=== PATIENT | female | born 1975 | race Caucasian/White ===

== ENCOUNTER 2021-04-18 08:22 | Inpatient (IN) | payer MEDICAID, OTHER, SELFPAY ==
--- NOTE | ~2021-04-18 | US_ITS ---
EXAMINATION: US ABDOMEN LIMITED CLINICAL INFORMATION: Right upper quadrant pain. Rule out acute cholecystitis.. COMPARISON: None TECHNIQUE: Real-time imaging of the right upper quadrant abdominal viscera. FINDINGS: GALLBLADDER: There are 2 echogenic shadowing mobile gallstones measuring 1.2 x 1.4 cm in the fundus and 1.2 x 1.2 cm in the neck. Gallbladder wall thickness measures 0.37 cm. COMMON BILE DUCT: Normal in caliber measuring 0.4 317. cm in diameter. No echogenic stones or debris seen in the CBD. US/US abdomen limited IMPRESSION: Mobile gallstones with mild wall thickening. Common bile duct appears normal caliber.
--- NOTE | ~2021-04-18 | MR_ITS ---
EXAMINATION: MR ABDOMEN WITHOUT CONTRAST CLINICAL INFORMATION: Rule out common bile duct stone COMPARISON: Previous CT of the abdomen and limited right upper quadrant ultrasound from yesterday TECHNIQUE: MR abdomen is performed without gadolinium contrast. MRCP sequences were also performed. FINDINGS: LUNG BASES: The visualized lung bases are unremarkable. LIVER, GALLBLADDER, AND BILIARY TREE: The liver is normal in size, smooth in contour, and normal in signal. No focal hepatic lesion or biliary ductal dilatation is present. The gallbladder is enlarged. There is gallbladder wall thickening and edema. There are 2 gallstones, one in the neck of the gallbladder. The common bile duct measures 7 mm. There is a small 3 mm stone seen in the common bile duct, for example image 1 series 9, image 29 series 11 and image 13 series 4. PANCREAS: Unremarkable. The main pancreatic duct is normal. SPLEEN: Unremarkable. ADRENAL GLANDS: Unremarkable. KIDNEYS AND URETERS: The kidneys are normal in size and shape. No hydronephrosis. No perinephric stranding. GASTROINTESTINAL TRACT: No bowel obstruction. No ascites or fluid collection. ABDOMINAL WALL: No significant hernia is appreciated. LYMPH NODES: No lymphadenopathy. VASCULAR: Unremarkable. OSSEOUS STRUCTURES: Marrow signal normal. MR/MR MRCP IMPRESSION: Enlarged gallbladder, gallstones and gallbladder wall thickening and edema suggestive of acute cholecystitis. 3 mm common bile duct stone. Normal caliber intra and extrahepatic bile ducts.
--- NOTE | ~2021-04-18 | FL_ITS ---
EXAMINATION: XR FLUOROSCOPY WITH IMAGES CLINICAL INFORMATION: Gallstones and common bile left stone COMPARISON: Previous MRCP from yesterday TECHNIQUE: Fluoroscopy performed by Dr. Edgardo Santo. Fluoroscopy time: 3.2 minutes DAP: 19 mGycm2 Images: 5 FINDINGS: Images demonstrate wire in the extrahepatic bile duct. There is no intra or extrahepatic biliary duct dilatation. There is a small round filling defect in the distal common bile duct questionable for common bile duct stone. There is passage of contrast into the duodenum. FL/FL guidance in OR IMPRESSION: Fluoroscopy guidance for ERCP.
--- NOTE | ~2021-04-18 | CT_ITS ---
EXAMINATION: CT ABDOMEN AND PELVIS WITHOUT CONTRAST CLINICAL INFORMATION: Right-sided flank pain COMPARISON: None TECHNIQUE: Multidetector volumetric imaging was performed from the superior aspect of the liver through the pubic symphysis. Sagittal and coronal reformatted images were obtained on the technologist's workstation. This CT examination was performed using dose optimization techniques as appropriate, variously including the following: *Automated exposure control *Adjustment of mA and/or kV according to patient size (this includes techniques or standardized protocols for targeted exams where dose is matched to indication/reason for exam; i.e. extremities or head) *Use of iterative reconstruction technique DLP: 534 mGy-cm FINDINGS: Exam is limited due to motion artifact. LUNG BASES: The visualized lung bases are unremarkable. LIVER, GALLBLADDER, AND BILIARY TREE: The liver is normal in size, shape, and attenuation. No focal hepatic lesion or biliary ductal dilatation is present. The gallbladder is enlarged measuring 4.8 x 5.7 x 11.5 cm transverse AP and longitudinal dimension. There are gallstones in the gallbladder, including stone in the neck of the gallbladder. The gallbladder wall appears thickened. PANCREAS: Unremarkable. SPLEEN: Unremarkable. ADRENAL GLANDS: Unremarkable. KIDNEYS AND URETERS: The kidneys are normal in size, shape, and attenuation. No hydronephrosis, hydroureter, or calculi seen. No perinephric stranding. BLADDER: Unremarkable. GASTROINTESTINAL TRACT: There is a duodenal diverticulum adjacent to the head of the pancreas. The small and large bowel are otherwise unremarkable. The appendix is unremarkable. ABDOMINAL WALL: No significant hernia is appreciated. LYMPH NODES: Normal. VASCULAR: Unremarkable. PELVIC VISCERA: Unremarkable. OSSEOUS STRUCTURES: Unremarkable. CT/CT abdomen pelvis wo con IMPRESSION: Gallstones including stone in the neck of the gallbladder. Enlarged gallbladder and gallbladder wall thickening. Appearance is questionable for acute cholecystitis. Fleischner guidelines were followed.
[2021-04-18 08:30] VITALS: BP 116/87; PULSE 102; RESP 20; TEMP 36.6; O2SAT 98; BMI 28.3
--- NOTE | 2021-04-18 08:55 | ECG_ITS ---
Test Reason : ABDOMINAL PAIN Blood Pressure : / mmHG Vent. Rate : 093 BPM Atrial Rate : 093 BPM P-R Int : 180 ms QRS Dur : 082 ms QT Int : 346 ms P-R-T Axes : 051 039 011 degrees QTc Int : 430 ms Normal sinus rhythm Right atrial enlargement Borderline ECG No previous ECGs available Referred By: Yael Porras Electronically Signed By:
--- NOTE | 2021-04-18 09:06 | ED_ITS ---
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 Initially the patient was having intermittent episodes but now they seem more frequent and more severe pain. There is no associated nausea, vomiting, fever, urinary symptoms. No diarrhea or constipation. No surgical history Related Data Home Medications Medication Instructions Recorded Confirmed No Known Home Meds 04/18/21 04/18/21 Allergies Allergy/AdvReac Type Severity Reaction Status Date / Time No Known Allergies Allergy Verified 04/18/21 08:54 Review of Systems Review of Systems Yes all other systems are reviewed and are negative Constitutional: Reports no additional constitutional complaints, Denies body ache(s), Denies chills, Denies fever(s), Denies headache(s) and Denies weakness Eyes: Reports no additional eye complaints and Denies change in vision Reports system reviewed and no additional complaints, except as documented, Denies dizziness, Denies headache(s), Denies nasal congestion, Denies nasal discharge and Denies neck pain Cardiovascular: Reports no additional cardiovascular complaints, Denies chest pain, Denies leg edema and Denies dyspnea Respiratory: Reports no additional respiratory complaints, Denies cough and Denies dyspnea Gastrointestinal: Reports no additional gastrointestinal complaints, Reports abdominal pain, Denies diarrhea, Denies nausea and Denies vomiting Genitourinary: Reports no additional female genitourinary complaints and Denies urinary incontinence Musculoskeletal: Reports no additional musculoskeletal complaints, Reports back pain, Denies arthralgias, Denies joint swelling, Denies neck pain, Denies numbness and Denies tingling Skin/Breast: Reports system reviewed and no additional complaints, except as docu and Denies rash Reports system reviewed and no additional complaints, except as documented, Denies Abnormal speech present, Denies dizziness, Denies headache(s), Denies numbness, Denies tingling and Denies weakness Physical Exam Verdana 4l Vital Signs: Verdana 4d Verdana 4d Vital Signs: Verdana 4d Verdana 4Bd Last Vital Signs Verdana 4d Field Evidence Technician New 4d Field Evidence Technician New 4d Temp 97.8 F 04/18/21 08:30 Field Evidence Technician New 4d Pulse 102 H 04/18/21 08:30 Field Evidence Technician New 4d Resp 20 04/18/21 08:30 BP 116/87 04/18/21 08:30 Pulse Ox 98 04/18/21 08:30 BMI result Body Mass Index 28.3 Const: General: cooperative, healthy appearing, comfortable and no acute distress Orientation/consciousness: patient oriented x3 Limitations: no limitations HENMT: Head: Yes normal to inspection Ears: hearing grossly normal bilaterally General nose exam: Normal external nose present Face and sinus: Yes normal facial exam Mouth: Normal oral and palatal mucosa present Throat: Yes posterior oropharynx normal Eyes: General: appearance normal, both eyes and all related structures Pupils: Equal, round and reactive pupils present Neck: Neck: Yes normal visual inspection Chest: Chest palpation & inspection: normal inspection of the chest Resp: Effort & Inspection: normal respiratory effort Auscultation: clear to auscultation bilaterally Cardio: Rate: regular rate Rhythm: regular rhythm Peripheral pulses: Peripheral pulses 2+ throughout GI: Inspection: Yes normal to inspection Palpation (GI): Soft to palpation and Tenderness to palpation present (GI) (Generalized but more focal in RUQ with guarding ) Auscultation: normal bowel sounds : General: Yes CVA tenderness (mild right ) Back/Spine/Pelvis: Back: CVA tenderness (mild right ) Thoracic/Lumbar Spine: thoracic and lumbar spine normal to inspection Skin: General skin exam: no rashes or lesions noted Neuro: General: patient oriented x3, no focal motor deficits and normal sensation to monofilament Cranial nerves: Yes Equal, round and reactive pupils present Cognition (Neuro): normal cognition Speech: No Abnormal speech present Gait exam (Neuro): Normal gait present Motor exam (neuro): 5/5 motor strength present throughout Extrem: General: Yes normal to inspection Course Course Course Narrative: 45-year-old female here with reports of right-sided rib patient over the last 2 days that is getting more frequent and more severe with time. No associated symptoms. On exam the patient has generalized abdominal pain but more focal tenderness in the right upper quadrant with also some mild right CVA tenderness. Will check labs, UA, CT, COVID screen. 1000-+trich on urine. Will send CT NG 1100-CT shows IMPRESSION: Gallstones including stone in the neck of the gallbladder. Enlarged gallbladder and gallbladder wall thickening. Appearance is questionable for acute cholecystitis. 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 Her pain is improving but not resolved. Will check ultrasound. Patient has a leukocytosis. At this time infection is suspected. Blood cultures and lactic acid ordered. Antibiotics ordered UA is concerning for UTI. She also is positive for Trichomonas. She tells me she has a female partner but they are not currently sexually active and have not been for 2 years. She is not concern for STD exposure. Will treat with p.o. Flagyl x1. 1145- Abdominal US GALLBLADDER: There are 2 echogenic shadowing mobile gallstones measuring 1.2 x 1.4 cm in the fundus and 1.2 x 1.2 cm in the neck. Gallbladder wall thickness measures 0.37 cm. COMMON BILE DUCT: Normal in caliber measuring 0.4 317. cm in diameter. No echogenic stones or debris seen in the CBD. -Call out to surgery to discuss 1215-Spoke to Dr Breaux who is at the bedside seeing the patient and will a dmit to his service. MDM - Abdominal Pain MDM Narrative Medical decision making narrative: Renal colic, pyelonephritis, cholecystitis Medical Records Attestation: I reviewed the patient's medical records. Lab Data Attestation: I reviewed the patient's lab results. Result diagrams: 04/18/21 09:16 04/18/21 09:16 Labs: Lab Results 04/18/21 04/18/21 04/18/21 Range/Units 09:00 09:00 09:16 WBC 21.5 H (4.8-10.8) X10*3/uL RBC 5.15 (4.20-5.50) X10*6/uL Hgb 14.8 (12.0-16.0) g/dl Hct 44.6 (37.0-47.0) % MCV 86.6 (80.0-98.0) fL MCH 28.7 (27.0-33.0) pg MCHC 33.2 (31.0-35.0) g/dl RDW 12.1 (11.0-16.0) % Plt Count 375 (160-400) X10*3/uL MPV 8.6 L (9.4-12.3) fL Immature Gran % (Auto) 0.4 (0.0-0.4) % Neut % (Auto) 80.7 H (45-73) % Lymph % (Auto) 9.2 L (20-40) % [place] % (Auto) 9.6 (2-11) % Eos % (Auto) 0.0 (0-4) % Baso % (Auto) 0.1 (0-2) % Lymph # (Auto) 2.0 (1.2-4.9) X10*3/uL [place] # (Auto) 2.1 H (0.1-1.2) X10*3/uL Eos # (Auto) 0.0 (0.0-0.4) X10*3/uL Baso # (Auto) 0.0 (0.0-0.2) X10*3/uL Abs Immat Gran (auto) 0.09 H (0.00-0.03) X10*3/uL Absolute Neuts (auto) 17.3 H (2.0-8.3) x10*3/uL Absolute Nucleated RBC 0.000 (0.0-0.012) X10*3/uL Nucleated RBC % (auto) 0.0 (0.0-0.2) /100WBC Smear Tech's Comments VERIFIED Sodium (135-145) mmol/L Potassium (3.3-5.1) mmol/L Chloride (96-108) mmol/L Carbon Dioxide (22-29) mmol/L Anion Gap (12-20) BUN (9-16) mg/dL Creatinine (0.5-1.4) mg/dL Estim Creat Clear Calc Estimated GFR Random Glucose (60-115) mg/dL Lactic Acid (0.5-2.0) mmol/L Calcium (8.4-10.2) mg/dL Total Bilirubin (0.0-1.0) mg/dL Direct Bilirubin (0.0-0.5) mg/dL AST (5-31) U/L ALT (0-31) U/L Alkaline Phosphatase (39-117) U/L Total Protein (6.5-8.0) g/dL Albumin (3.5-5.0) g/dL Lipase (8-78) U/L Urine Color YELLOW Urine Appearance HAZY Urine pH 5.5 (5.0-8.0) Ur Specific [place] >= 1.030 H (1.005-1.025) Urine Protein TRACE (NEG-TRACE) MG/DL Urine Glucose (UA) NEG (NEG) MG/DL Urine Ketones NEG (NEG) MG/DL Urine Blood 3+ H (NEG) Urine Nitrite NEG (NEG) Ur Leukocyte Esterase 1+ H (NEG) Urine RBC 15-29 H (0) /HPF Urine WBC 10-14 H (0-4) /HPF Ur Squamous Epith 3+ /LPF Cells Urine Bacteria TRACE /LPF Urine Mucus 2+ /LPF Urine Trichomonas NOTED Urine Test NEGATIVE (NEGATIVE) Chlam trachomat DNA (Not Detect.) PCR COVID-19 ([facility]) (Negative) COVID-19 Clin Com N.gonorrhoeae DNA (Not Detect.) (PCR) 04/18/21 04/18/21 04/18/21 Range/Units 09:16 09:17 10:38 WBC (4.8-10.8) X10*3/uL RBC (4.20-5.50) X10*6/uL Hgb (12.0-16.0) g/dl Hct (37.0-47.0) % MCV (80.0-98.0) fL MCH (27.0-33.0) pg MCHC (31.0-35.0) g/dl RDW (11.0-16.0) % Plt Count (160-400) X10*3/uL MPV (9.4-12.3) fL Immature Gran % (0.0-0.4) % (Auto) Neut % (Auto) (45-73) % Lymph % (Auto) (20-40) % [place] % (Auto) (2-11) % Eos % (Auto) (0-4) % Baso % (Auto) (0-2) % Lymph # (Auto) (1.2-4.9) X10*3/uL [place] # (Auto) (0.1-1.2) X10*3/uL Eos # (Auto) (0.0-0.4) X10*3/uL Baso # (Auto) (0.0-0.2) X10*3/uL Abs Immat Gran (auto) (0.00-0.03) X10*3/uL Absolute Neuts (auto) (2.0-8.3) x10*3/uL Absolute Nucleated (0.0-0.012) RBC X10*3/uL Nucleated RBC % (0.0-0.2) /100WBC (auto) Smear Tech's Comments Sodium 135 (135-145) mmol/L Potassium 4.3 (3.3-5.1) mmol/L Chloride 100 (96-108) mmol/L Carbon Dioxide 26 (22-29) mmol/L Anion Gap 13 (12-20) BUN 10 (9-16) mg/dL Creatinine 0.71 (0.5-1.4) mg/dL Estim Creat Clear 97.0 Calc Estimated GFR > 60 Random Glucose 134 H (60-115) mg/dL Lactic Acid (0.5-2.0) mmol/L Calcium 10.6 H (8.4-10.2) mg/dL Total Bilirubin 0.8 (0.0-1.0) mg/dL Direct Bilirubin 0.3 (0.0-0.5) mg/dL AST 13 (5-31) U/L ALT 16 (0-31) U/L Alkaline Phosphatase 73 (39-117) U/L Total Protein 8.5 H (6.5-8.0) g/dL Albumin 4.7 (3.5-5.0) g/dL Lipase < 4 L (8-78) U/L Urine Color Urine Appearance Urine pH (5.0-8.0) Ur Specific [place] (1.005-1.025) Urine Protein (NEG-TRACE) MG/DL Urine Glucose (UA) (NEG) MG/DL Urine Ketones (NEG) MG/DL Urine Blood (NEG) Urine Nitrite (NEG) Ur Leukocyte Esterase (NEG) Urine RBC (0) /HPF Urine WBC (0-4) /HPF Ur Squamous Epith /LPF Cells Urine Bacteria /LPF Urine Mucus /LPF Urine Trichomonas Urine Test (NEGATIVE) Chlam trachomat DNA NOT DETECTED (Not Detect.) PCR COVID-19 ([facility]) Negative (Negative) COVID-19 Clin Com See Note N.gonorrhoeae DNA NOT DETECTED (Not Detect.) (PCR) 04/18/21 Range/Units 11:26 WBC (4.8-10.8) X10*3/uL RBC (4.20-5.50) X10*6/uL Hgb (12.0-16.0) g/dl Hct (37.0-47.0) % MCV (80.0-98.0) fL MCH (27.0-33.0) pg MCHC (31.0-35.0) g/dl RDW (11.0-16.0) % Plt Count (160-400) X10*3/uL MPV (9.4-12.3) fL Immature Gran % (Auto) (0.0-0.4) % Neut % (Auto) (45-73) % Lymph % (Auto) (20-40) % [place] % (Auto) (2-11) % Eos % (Auto) (0-4) % Baso % (Auto) (0-2) % Lymph # (Auto) (1.2-4.9) X10*3/uL [place] # (Auto) (0.1-1.2) X10*3/uL Eos # (Auto) (0.0-0.4) X10*3/uL Baso # (Auto) (0.0-0.2) X10*3/uL Abs Immat Gran (auto) (0.00-0.03) X10*3/uL Absolute Neuts (auto) (2.0-8.3) x10*3/uL Absolute Nucleated RBC (0.0-0.012) X10*3/uL Nucleated RBC % (auto) (0.0-0.2) /100WBC Smear Tech's Comments Sodium (135-145) mmol/L Potassium (3.3-5.1) mmol/L Chloride (96-108) mmol/L Carbon Dioxide (22-29) mmol/L Anion Gap (12-20) BUN (9-16) mg/dL Creatinine (0.5-1.4) mg/dL Estim Creat Clear Calc Estimated GFR Random Glucose (60-115) mg/dL Lactic Acid 1.2 (0.5-2.0) mmol/L Calcium (8.4-10.2) mg/dL Total Bilirubin (0.0-1.0) mg/dL Direct Bilirubin (0.0-0.5) mg/dL AST (5-31) U/L ALT (0-31) U/L Alkaline Phosphatase (39-117) U/L Total Protein (6.5-8.0) g/dL Albumin (3.5-5.0) g/dL Lipase (8-78) U/L Urine Color Urine Appearance Urine pH (5.0-8.0) Ur Specific [place] (1.005-1.025) Urine Protein (NEG-TRACE) MG/DL Urine Glucose (UA) (NEG) MG/DL Urine Ketones (NEG) MG/DL Urine Blood (NEG) Urine Nitrite (NEG) Ur Leukocyte Esterase (NEG) Urine RBC (0) /HPF Urine WBC (0-4) /HPF Ur Squamous Epith Cells /LPF Urine Bacteria /LPF Urine Mucus /LPF Urine Trichomonas Urine Test (NEGATIVE) Chlam trachomat DNA PCR (Not Detect.) COVID-19 ([facility]) (Negative) COVID-19 Clin Com N.gonorrhoeae DNA (PCR) (Not Detect.) Imaging Data CT scan - abdomen: Attestation: I personally reviewed and interpreted this imaging study as follows: Radiologist's impression: IMPRESSION: Gallstones including stone in the neck of the gallbladder. Enlarged gallbladder and gallbladder wall thickening. Appearance is questionable for acute cholecystitis. US - abdomen: Attestation: I personally reviewed and interpreted this imaging study as follows: Radiologist's impression: GALLBLADDER: There are 2 echogenic shadowing mobile gallstones measuring 1.2 x 1.4 cm in the fundus and 1.2 x 1.2 cm in the neck. Gallbladder wall thickness measures 0.37 cm. COMMON BILE DUCT: Normal in caliber measuring 0.4 317. cm in diameter. No echogenic stones or debris seen in the CBD. US/US abdomen limited IMPRESSION: Mobile gallstones with mild wall thickening. ? Common bile duct appears normal caliber. ECG Data Attestation: I personally reviewed and interpreted this ECG as follows: ECG interpretation date: 04/18/21 ECG interpretation time: 09:21 Interpretation: NSR with rate 84, normal pr, normal qrs, normal qt Discharge Plan Discharge Clinical Impression: Acute cholecystitis Patient Disposition: Admitted As Inpatient [facility] Past Medical History Attestation statement: The following information was validated with the patient. Source: old records reviewed and nursing notes reviewed Medical History GERD (gastroesophageal reflux disease) Social History Social History Advance Directives: No Advance Directives Information Provided: Yes Patient : No
[2021-04-18 09:23] LABS: Basophils Percent Auto 0.1 % (0-2); Hematocrit 44.6 % (37.0-47.0); Hemoglobin 14.8 g/dl (12.0-16.0); Imm Gran Abs Auto 0.09 X10*3/uL (0.00-0.03); Imm Gran Pct Auto 0.4 % (0.0-0.4); Lymphocytes Percent Auto 9.2 % (20-40); MANUAL DIFF FLAG SCAN; Mean Corpuscular HGB Conc 33.2 g/dl (31.0-35.0); Mean Corpuscular Hemoglobin 28.7 pg (27.0-33.0); Mean Corpuscular Volume 86.6 fL (80.0-98.0); Mean Platelet Volume 8.6 fL (9.4-12.3); Monocytes Absolute Auto 2.1 X10*3/uL (0.1-1.2); Monocytes Percent Auto 9.6 % (2-11); Neutrophils Absolute Auto 17.3 x10*3/uL (2.0-8.3); Neutrophils Percent Auto 80.7 % (45-73); Platelet Count 375 X10*3/uL (160-400); Red Blood Count 5.15 X10*6/uL (4.20-5.50); Red Cell Distribution Width 12.1 % (11.0-16.0); SCAN SMEAR FLAG 1; White Blood Count 21.5 X10*3/uL (4.8-10.8)
[2021-04-18 09:26] LABS: UPreg QC Valid YES; Urine Pregnancy NEGATIVE (NEGATIVE)
[2021-04-18 09:28] LABS: Appearance Urine HAZY; Color Urine YELLOW; Glucose Urine UA NEG (NEG); Leukocyte Esterase Urine 1+ (NEG); Nitrite Urine NEG (NEG); PH 5.5 (5.0-8.0); Specific Gravity - Urine >= 1.030 (1.005-1.025); UACC Culture Trigger YES; Urine Blood 3+ (NEG); Urine Ketones NEG (NEG); Urine Protein TRACE MG/DL (NEG-TRACE)
[2021-04-18 09:44] LABS: Alanine Aminotransferase 16 U/L (0-31); Albumin Level 4.7 g/dL (3.5-5.0); Alkaline Phosphatase 73 U/L (39-117); Anion Gap 13 (12-20); Aspartate Amino Transferase 13 U/L (5-31); Bilirubin Direct 0.3 mg/dL (0.0-0.5); Bilirubin Total 0.8 mg/dL (0.0-1.0); Blood Urea Nitrogen 10 mg/dL (9-16); Calcium 10.6 mg/dL (8.4-10.2); Carbon Dioxide 26 mmol/L (22-29); Chloride 100 mmol/L (96-108); Estimated Glomerular Filt Rate > 60; Glucose Random 134 mg/dL (60-115); Lipase < 4 U/L (8-78); Potassium 4.3 mmol/L (3.3-5.1); Sodium 135 mmol/L (135-145); Total Protein 8.5 g/dL (6.5-8.0)
[2021-04-18 09:45] LABS: COVID-19 Test Negative (Negative)
[2021-04-18 09:45] LABS: Bacteria Urine TRACE /LPF; Mucus Urine 2+ /LPF; Squamous Epithelial Cell Urine 3+ /LPF
[2021-04-18 09:46] LABS: Trichomonas Urine NOTED
[2021-04-18] MEDS: Ketorolac Tromethamine 30 MG/ML VIAL IVPUSH (10:12)
[2021-04-18] MEDS: 0.9 % Sodium Chloride 1,000 ML 999 ML IV (10:13)
[2021-04-18 10:16] LABS: SLIDE REVIEW VERIFIED
[2021-04-18 11:49] LABS: Lactic Acid 1.2 mmol/L (0.5-2.0)
[2021-04-18] MEDS: Ondansetron ODT 4 MG TAB.RAPDIS TRANSLINGU (11:51)
[2021-04-18] MEDS: metroNIDAZOLE 500 MG TABLET 2000 MG PO (11:51)
[2021-04-18] MEDS: cefTRIAXone sodium 1 GM in 0.9 % Sodium Chloride 50 ML IV (11:51)
--- NOTE | 2021-04-18 12:00 | PHA.MEDREC ---
Pharmacy Consult ? Medication Reconciliation Pharmacy has completed the medication reconciliation. Patient only speak [place]. Reports no medications. María Parikh, PharmD
[2021-04-18 12:26] LABS: CT PCR NOT DETECTED (Not Detect.); NG PCR NOT DETECTED (Not Detect.)
--- NOTE | 2021-04-18 12:53 | P.HPGS_ITS ---
History of Present Illness History of Present Illness Date of Service: 04/19/21 Chief complaint: acute cholecystitis Narrative: Mimi Ann Sa is a 45 year old female who came to the emergency room this morning because of right upper quadrant pain and epigastric pain. She says this has been going on for about 3 days. She does not recall any aggravating factor. She denies any fever or chills. She says that she did not have any appetite yesterday because of her pain. She denies any similar episodes of pain in the past. She says she is in good health otherwise and denies any medications. Review of Systems Verdana 4l Constitutional: Verdana 4d Constitutional: Verdana 4d Verdana 4d Denies chills and Denies fever(s) Verdana 4l Cardiovascular: Verdana 4d Cardiovascular: Verdana 4d Verdana 4d Denies chest pain, Denies dyspnea and Denies dyspnea on exertion Verdana 4l Respiratory: Verdana 4d Verdana 4d Respiratory: Verdana 4d Denies cough, Denies dyspnea and Denies dyspnea on exertion Verdana 4l Gastrointestinal: Verdana 4d Gastrointestinal: Verdana 4d Verdana 4d Denies hematochezia and Denies change in bowel habits Verdana 4l Genitourinary: Verdana 4d Verdana 4d Genitourinary: Verdana 4d Denies hematuria Verdana 4l Musculoskeletal: Verdana 4d Musculoskeletal: Verdana 4d Verdana 4d Denies back pain and Denies limited range of motion Verdana 4l Neurologic: Verdana 4d Denies focal weakness and Denies convulsions Verdana 4l Psychiatric: Verdana 4d Verdana 4d Psychiatric: Verdana 4d Denies depression and Denies mood swings PMFSH Past Medical History Medical History GERD (gastroesophageal reflux disease) Social History Social History Household Members: Family Housing: House Do you presently have visiting nurse or other home services: No Patient Tobacco Use Status: Never used Tobacco Use of substances other than those prescribed or required for medical reasons: No Have you been hit, kicked, punched, or otherwise hurt by someone within the past year? If so, by whom?: No Do you feel safe in your current relationship?: No Current Relationship Is there a partner from a previous relationship who is making you feel unsafe now?: No Are you made to feel afraid or neglected: No Advance Directives: No Advance Directives Information Provided: Yes Do you have thoughts of harming others: None Do you have a plan to hurt others: No Plan Recently lost weight without trying: No Nutrition Risks: No Nutritional Risk Patient : No service: No Current occupational status: unemployed Meds Allergies Allergy/AdvReac Type Severity Reaction Status Date / Time No Known Allergies Allergy Verified 04/18/21 08:54 Active Medications: Current Medications Pharmacy Consult (Consult Rx Perform Med Rec) 1 each MISCELLANE ONCE PRN PRN Reason: Consult order Home Medications Medication Instructions Recorded Confirmed Last Taken Type No Known Home Meds 04/18/21 04/18/21 Unknown History Physical Exam Verdana 4l Vital Signs: Verdana 4d Verdana 4d Vital Signs: Verdana 4d Verdana 4Bd Last Vital Signs Verdana 4d Calculator Operator New 4d Calculator Operator New 4d Temp 97.8 F 04/18/21 08:30 Calculator Operator New 4d Pulse 102 H 04/18/21 08:30 Calculator Operator New 4d Resp 20 04/18/21 08:30 BP 116/87 04/18/21 08:30 Pulse Ox 98 04/18/21 08:30 BMI result Body Mass Index 28.3 Const: General: comfortable and no acute distress Orientation/consciousness: patient oriented x3 Neck: Neck: Yes no lymphadenopathy Resp: Auscultation: clear to auscultation bilaterally Cardio: Rhythm: regular rhythm GI: Other: Tender on the right upper quadrant, no guarding or rebound Palpation (GI): Soft to palpation, Tenderness to palpation present (GI) and no guarding Neuro: General: patient oriented x3 Results Results Labs: Short CBC 04/18/21 Range/Units 09:16 WBC 21.5 H (4.8-10.8) X10*3/uL Hgb 14.8 (12.0-16.0) g/dl Hct 44.6 (37.0-47.0) % Plt Count 375 (160-400) X10*3/uL BMP 04/18/21 09:16 Sodium 135 Potassium 4.3 Chloride 100 Carbon Dioxide 26 BUN 10 Creatinine 0.71 Calcium 10.6 H Liver Function 04/18/21 Range/Units 09:16 Total Bilirubin 0.8 (0.0-1.0) mg/dL Direct Bilirubin 0.3 (0.0-0.5) mg/dL AST 13 (5-31) U/L ALT 16 (0-31) U/L Alkaline Phosphatase 73 (39-117) U/L Albumin 4.7 (3.5-5.0) g/dL Urine 04/18/21 04/18/21 Range/Units 09:00 09:00 Urine Color YELLOW Urine Appearance HAZY Urine pH 5.5 (5.0-8.0) Ur Specific [place] >= 1.030 H (1.005-1.025) Urine Protein TRACE (NEG-TRACE) MG/DL Urine Glucose (UA) NEG (NEG) MG/DL Urine Test NEGATIVE (NEGATIVE) Abdomen CT scan report/results: report reviewed and image reviewed CT scan - pelvis: report reviewed and image reviewed Abdominal ultrasound report/results: report reviewed and image reviewed Assessment and Plan (1) Acute cholecystitis: Status: Acute [age] year old female with right upper quadrant pain and tenderness, with ultrasound and CAT scan findings suggestive of acute cholecystitis with gallstones. High explained to her that she will need to be admitted for IV antibiotics. I told her that we can proceed with laparoscopic cholecystectomy with possible open cholecystectomy as surgical treatment. I discussed with her the technique of this procedure. I reviewed the risks including but not limited to bleeding, infections, injury to other organs including bowel, liver and bile duct, retained stones, bile leak, as well as the benefits and alternatives. She understands and wished to proceed. We will schedule her for this cholecystectomy tomorrow. Stone Lathe Operator services with [employer] were used for the above. The interpeter ID no. was [id number]. Quality Stroke Does the patient have a stroke diagnosis?: No VTE Prior VTE?: No VTE Risk Level:: Medical - moderate - high VTE Device Contraindication: N/A - Device Ordered VTE Drug Contraindication: N/A - Med Ordered Procedures Date of Service Date of Service: 04/18/21
[2021-04-18 14:04] VITALS: BP 97/66; PULSE 94; RESP 16; TEMP 36.6; O2SAT 96
[2021-04-18] MEDS: Piperacillin Sodium/Tazobactam 3.375 GM in 0.9 % Sodium Chloride 50 ML IV ×2 (15:06→21:27)
[2021-04-18] MEDS: Heparin Sodium,Porcine 5,000 UNIT/ML VIAL 5000 UNIT SUBCUT (15:07)
[2021-04-18 17:55] VITALS: BP 119/76; PULSE 115; RESP 17; TEMP 36.6; O2SAT 97
[2021-04-18] MEDS: oxyCODONE HCl Immed Release 5 MG TABLET 10 MG PO (18:07)
[2021-04-18] MEDS: 0.9 % Sodium Chloride Flush 3 ML SYRINGE IVFLUSH (18:07)
[2021-04-18 19:29] VITALS: BP 135/82; PULSE 96; RESP 17; TEMP 36.4; O2SAT 97
[2021-04-18] MEDS: Morphine Sulfate 4 MG/ML CARTRIDGE 3 MG IVPUSH (21:29)
[2021-04-18 23:56] VITALS: BP 97/68; PULSE 90; RESP 15; TEMP 37; O2SAT 95
[2021-04-19] MEDS: 0.9 % Sodium Chloride Flush 3 ML SYRINGE IVFLUSH ×3 (00:16→22:16)
[2021-04-19] MEDS: Heparin Sodium,Porcine 5,000 UNIT/ML VIAL 5000 UNIT SUBCUT (00:16)
[2021-04-19] MEDS: Piperacillin Sodium/Tazobactam 3.375 GM in 0.9 % Sodium Chloride 50 ML IV ×4 (03:07→22:16)
[2021-04-19] MEDS: Morphine Sulfate 4 MG/ML CARTRIDGE 3 MG IVPUSH ×2 (03:09→09:07)
[2021-04-19 04:00] VITALS: BP 93/59; PULSE 92; RESP 14; TEMP 37.2; O2SAT 95
[2021-04-19 06:12] LABS: Basophils Percent Auto 0.2 % (0-2); Eosinophils Percent Auto 0.2 % (0-4); Hematocrit 37.3 % (37.0-47.0); Hemoglobin 12.2 g/dl (12.0-16.0); Imm Gran Abs Auto 0.05 X10*3/uL (0.00-0.03); Imm Gran Pct Auto 0.3 % (0.0-0.4); Lymphocytes Absolute Auto 2.7 X10*3/uL (1.2-4.9); Lymphocytes Percent Auto 19.1 % (20-40); MANUAL DIFF FLAG SCAN; Mean Corpuscular HGB Conc 32.7 g/dl (31.0-35.0); Mean Corpuscular Hemoglobin 28.7 pg (27.0-33.0); Mean Corpuscular Volume 87.8 fL (80.0-98.0); Mean Platelet Volume 8.8 fL (9.4-12.3); Monocytes Absolute Auto 1.5 X10*3/uL (0.1-1.2); Monocytes Percent Auto 10.6 % (2-11); Neutrophils Percent Auto 69.6 % (45-73); Platelet Count 310 X10*3/uL (160-400); Red Blood Count 4.25 X10*6/uL (4.20-5.50); Red Cell Distribution Width 12.3 % (11.0-16.0); SCAN SMEAR FLAG 1; White Blood Count 14.3 X10*3/uL (4.8-10.8)
[2021-04-19 06:14] LABS: Alanine Aminotransferase 64 U/L (0-31); Albumin Level 3.9 g/dL (3.5-5.0); Alkaline Phosphatase 76 U/L (39-117); Anion Gap 10 (12-20); Aspartate Amino Transferase 63 U/L (5-31); Bilirubin Direct 0.7 mg/dL (0.0-0.5); Bilirubin Total 1.4 mg/dL (0.0-1.0); Blood Urea Nitrogen 11 mg/dL (9-16); Calcium 9.3 mg/dL (8.4-10.2); Carbon Dioxide 27 mmol/L (22-29); Chloride 106 mmol/L (96-108); Creatinine Clr Calc Pharmacy 98.4; Estimated Glomerular Filt Rate > 60; Glucose Random 108 mg/dL (60-115); Potassium 3.9 mmol/L (3.3-5.1); Sodium 139 mmol/L (135-145); Total Protein 6.9 g/dL (6.5-8.0)
[2021-04-19 06:45] LABS: SLIDE REVIEW VERIFIED
[2021-04-19 07:45] VITALS: BP 119/65; PULSE 94; RESP 18; TEMP 36.7; O2SAT 96
--- NOTE | 2021-04-19 08:43 | P.PNGS_ITS ---
Subjective Subjective Date of Service: 04/19/21 Interval history: says she has pain on epigastric area no fever overnight no vomitting Physical Exam Verdana 4l Vital Signs: Verdana 4d Verdana 4d Vital Signs: Verdana 4d Verdana 4Bd Last Vital Signs Verdana 4d Ski Base Trimmer New 4d Ski Base Trimmer New 4d Temp 98.1 F 04/19/21 07:45 Ski Base Trimmer New 4d Pulse 94 04/19/21 07:45 Ski Base Trimmer New 4d Resp 18 04/19/21 07:45 BP 119/65 04/19/21 07:45 Pulse Ox 96 04/19/21 07:45 BMI result Body Mass Index 28.3 Const: General: no acute distress Resp: Effort & Inspection: normal respiratory effort Cardio: Rate: regular rate GI: Other: tender on RUQ,epig area Palpation (GI): Soft to palpation Objective Data Active Medications Acetaminophen (Acetaminophen Supp 650 Mg Supp.Rect) 650 mg MN Q6H PRN PRN Reason: Pain, Mild (Pain Scale 1-3) Heparin Sodium (Porcine) (Heparin Sodium,Porcine 5,000 Unit/Ml Vial) 5,000 unit SUBCUT Q12H [facility] Last Admin: 04/19/21 00:16 Dose: 5,000 unit Documented by: GREGORIO Cefotetan Disodium 2 gm/ (Sodium Chloride) 50 mls @ 100 mls/hr IV PREOP ONE Stop: 04/19/21 14:35 Piperacillin Sod/Tazobactam (Sod 3.375 gm/ Sodium Chloride) 50 mls @ 100 mls/hr IV Q6H [facility] Last Infusion: 04/19/21 04:08 Dose: 0 mls/hr Documented by: GREGORIO Morphine Sulfate (Morphine Sulfate 4 Mg/Ml Cartridge) 3 mg IVPUSH Q4H PRN; Protocol PRN Reason: Pain, Severe (Pain Scale 7-10) Last Admin: 04/19/21 03:09 Dose: 3 mg Documented by: GREGORIO Ondansetron HCl (Ondansetron Hcl 4 Mg/2 Ml Vial) 4 mg IVPUSH Q8H PRN PRN Reason: Nausea and Vomiting Oxycodone HCl (Oxycodone Hcl Immed Release 5 Mg Tablet) 10 mg PO Q4H PRN PRN Reason: Pain, Moderate (Pain Scale 4-6 Last Admin: 04/18/21 18:07 Dose: 10 mg Documented by: TAMAR Pharmacy Consult (Consult Rx Perform Med Rec) 1 each MISCELLANE ONCE PRN PRN Reason: Consult order Sodium Chloride (0.9 % Sodium Chloride Flush 3 Ml Syringe) 3 ml IVFLUSH QSHIFT [facility] Last Admin: 04/19/21 00:16 Dose: 3 ml Documented by: GREGORIO Labs CBC & Chem 7: 04/19/21 05:42 04/19/21 05:42 Labs: Laboratory Results - last 24 hr 04/18/21 04/18/21 04/18/21 09:00 09:00 09:16 MCV 86.6 MCH 28.7 MCHC 33.2 RDW 12.1 Plt Count 375 MPV 8.6 L Immature Gran % (Auto) 0.4 Neut % (Auto) 80.7 H Lymph % (Auto) 9.2 L Hitchcock % (Auto) 9.6 Eos % (Auto) 0.0 Baso % (Auto) 0.1 Lymph # (Auto) 2.0 Hitchcock # (Auto) 2.1 H Eos # (Auto) 0.0 Baso # (Auto) 0.0 Abs Immat Gran (auto) 0.09 H Absolute Neuts (auto) 17.3 H Absolute Nucleated RBC 0.000 Nucleated RBC % (auto) 0.0 Smear Tech's Comments VERIFIED Anion Gap Estim Creat Clear Calc Estimated GFR Random Glucose Lactic Acid Calcium Total Bilirubin Direct Bilirubin AST ALT Alkaline Phosphatase Total Protein Albumin Lipase Urine Color YELLOW Urine Appearance HAZY Urine pH 5.5 Ur Specific Deridder >= 1.030 H Urine Protein TRACE Urine Glucose (UA) NEG Urine Ketones NEG Urine Blood 3+ H Urine Nitrite NEG Ur Leukocyte Esterase 1+ H Urine RBC 15-29 H Urine WBC 10-14 H Ur Squamous Epith Cells 3+ Urine Bacteria TRACE Urine Mucus 2+ Urine Trichomonas NOTED Urine Test NEGATIVE Chlam trachomat DNA PCR COVID-19 ([facility]) COVID-19 Clin Com N.gonorrhoeae DNA (PCR) 04/18/21 04/18/21 04/18/21 09:16 09:17 10:38 MCV MCH MCHC RDW Plt Count MPV Immature Gran % (Auto) Neut % (Auto) Lymph % (Auto) Hitchcock % (Auto) Eos % (Auto) Baso % (Auto) Lymph # (Auto) Hitchcock # (Auto) Eos # (Auto) Baso # (Auto) Abs Immat Gran (auto) Absolute Neuts (auto) Absolute Nucleated RBC Nucleated RBC % (auto) Smear Tech's Comments Anion Gap 13 Estim Creat Clear Calc 97.0 Estimated GFR > 60 Random Glucose 134 H Lactic Acid Calcium 10.6 H Total Bilirubin 0.8 Direct Bilirubin 0.3 AST 13 ALT 16 Alkaline Phosphatase 73 Total Protein 8.5 H Albumin 4.7 Lipase < 4 L Urine Color Urine Appearance Urine pH Ur Specific Deridder Urine Protein Urine Glucose (UA) Urine Ketones Urine Blood Urine Nitrite Ur Leukocyte Esterase Urine RBC Urine WBC Ur Squamous Epith Cells Urine Bacteria Urine Mucus Urine Trichomonas Urine Test Chlam trachomat DNA PCR NOT DETECTED COVID-19 ([facility]) Negative COVID-19 Clin Com See Note N.gonorrhoeae DNA (PCR) NOT DETECTED 04/18/21 04/19/21 04/19/21 11:26 05:42 05:42 MCV 87.8 MCH 28.7 MCHC 32.7 RDW 12.3 Plt Count 310 MPV 8.8 L Immature Gran % (Auto) 0.3 Neut % (Auto) 69.6 Lymph % (Auto) 19.1 L Hitchcock % (Auto) 10.6 Eos % (Auto) 0.2 Baso % (Auto) 0.2 Lymph # (Auto) 2.7 Hitchcock # (Auto) 1.5 H Eos # (Auto) 0.0 Baso # (Auto) 0.0 Abs Immat Gran (auto) 0.05 H Absolute Neuts (auto) 10.0 H Absolute Nucleated RBC 0.000 Nucleated RBC % (auto) 0.0 Smear Tech's Comments VERIFIED Anion Gap 10 L Estim Creat Clear Calc 98.4 Estimated GFR > 60 Random Glucose 108 Lactic Acid 1.2 Calcium 9.3 D Total Bilirubin 1.4 H Direct Bilirubin 0.7 H AST 63 H ALT 64 H Alkaline Phosphatase 76 Total Protein 6.9 Albumin 3.9 Lipase Urine Color Urine Appearance Urine pH Ur Specific Deridder Urine Protein Urine Glucose (UA) Urine Ketones Urine Blood Urine Nitrite Ur Leukocyte Esterase Urine RBC Urine WBC Ur Squamous Epith Cells Urine Bacteria Urine Mucus Urine Trichomonas Urine Test Chlam trachomat DNA PCR COVID-19 ([facility]) COVID-19 Clin Com N.gonorrhoeae DNA (PCR) Procedures Date of Service Date of Service: 04/19/21 Progress Note: A&P Assessment and plan (1) Acute cholecystitis: Status: Acute Assessment and Plan: scheduled for lap moises today bilirubin however has bumped up MRI to rule out CBD stone WBC much lower continue IV abx explained plan to pt via spanish interpreter Fall Risk Details Current Medications: Current Medications Acetaminophen (Acetaminophen Supp 650 Mg Supp.Rect) 650 mg MN Q6H PRN PRN Reason: Pain, Mild (Pain Scale 1-3) Heparin Sodium (Porcine) (Heparin Sodium,Porcine 5,000 Unit/Ml Vial) 5,000 unit SUBCUT Q12H [facility] Last Admin: 04/19/21 00:16 Dose: 5,000 unit Documented by: Cefotetan Disodium 2 gm/ (Sodium Chloride) 50 mls @ 100 mls/hr IV PREOP ONE Stop: 04/19/21 14:35 Piperacillin Sod/Tazobactam (Sod 3.375 gm/ Sodium Chloride) 50 mls @ 100 mls/hr IV Q6H [facility] Last Infusion: 04/19/21 04:08 Dose: Infused Documented by: Morphine Sulfate (Morphine Sulfate 4 Mg/Ml Cartridge) 3 mg IVPUSH Q4H PRN; Protocol PRN Reason: Pain, Severe (Pain Scale 7-10) Last Admin: 04/19/21 03:09 Dose: 3 mg Documented by: Ondansetron HCl (Ondansetron Hcl 4 Mg/2 Ml Vial) 4 mg IVPUSH Q8H PRN PRN Reason: Nausea and Vomiting Oxycodone HCl (Oxycodone Hcl Immed Release 5 Mg Tablet) 10 mg PO Q4H PRN PRN Reason: Pain, Moderate (Pain Scale 4-6 Last Admin: 04/18/21 18:07 Dose: 10 mg Documented by: Pharmacy Consult (Consult Rx Perform Med Rec) 1 each MISCELLANE ONCE PRN PRN Reason: Consult order Sodium Chloride (0.9 % Sodium Chloride Flush 3 Ml Syringe) 3 ml IVFLUSH QSHIFT [facility] Last Admin: 04/19/21 00:16 Dose: 3 ml Documented by: Time Spent With Patient Time: Total time spent is greater than 50% in coordination of care (as documented) at patient's floor/unit and/or counseling patient: Time with patient: 15 - 24 minutes Quality Stroke Does the patient have a stroke diagnosis?: No VTE Prior VTE?: No VTE Risk Level:: Medical - moderate - high VTE Device Contraindication: N/A - Device Ordered VTE Drug Contraindication: N/A - Med Ordered
--- NOTE | 2021-04-19 08:47 | MHC.CM.PN ---
CM met briefly with Patient at bedside; Patient appeared in pain so CM spoke with Patient's Brother/Caio @ [phone]. [place] been in the [place] X 30 days, from [place] and she is living in a house with her Brother. Patient appears to have no medical insurance; CM has faxed a referral to [facility]. Patient is functionally independent and home/no services is the goal for dc. CM has initiated and will follow for dc planning. Patient appears to have no PCP. Patient received two Covid Vax in [place] and the Pfizer booster here in the [place].
[2021-04-19 11:18] VITALS: BP 94/66; PULSE 94; RESP 20; TEMP 36.7; O2SAT 95
--- NOTE | 2021-04-19 14:33 | PM.EVENT ---
Event Note Date of Service: 04/19/21 Event Note: MRCP shows stones in the distal CBD this explains bump in Bilirubin will hold off lap moises now GI consulted for ERCP lap moises once CBD cleared explained above to pt via business reporting developer she understands well continue IVF pain mgt IV abx
[2021-04-19] MEDS: Lactated Ringers 1,000 ML 100 ML IVCONT (15:33)
[2021-04-19 15:36] VITALS: BP 108/72; PULSE 95; RESP 17; TEMP 36.9; O2SAT 96
[2021-04-19] MEDS: oxyCODONE HCl Immed Release 5 MG TABLET 10 MG PO (18:12)
--- NOTE | 2021-04-19 18:52 | PM.EVENT ---
Event Note Date of Service: 04/19/21 Event Note: GI Consult-Full note dictated-Hx via a Turkish phlebotomist medical lab assistant via the phone Imp: Choledocholithiasis described on the MRCP with associated elevated LFT's, gallstones, and probable cholescystitis. She is tender in the RUQ but does not appear toxic. Her LFT's are just minimally elevated and her WBC is coming down. Rec: Will plan for preop ERCP for 04/20. Full consent obtained, via a phlebotomist medical lab assistant, including risks of bleeding, perforation, cholangitis, and pancreatitis. Continue antibiotics and F/U labs. I stopped the SQ Heparin for now D/W patient in detail and she is comfortable with this plan. Thanks.
--- NOTE | 2021-04-19 19:53 | MHC.SHP ---
Pre-Procedural Eval Section A Date of Service: 04/20/21 The patient is an INPATIENT: Yes The History & Physical has been completed within 30 days and I have reviewed it.: Yes Section B Chief Complaint: acute cholecystitis Allergies: Allergies Allergy/AdvReac Type Severity Reaction Status Date / Time No Known Allergies Allergy Verified 04/18/21 08:54 Plan I have reviewed the history and physical and performed a pertinent physical examination on my patient. No changes have occurred unless specified.
[2021-04-19 20:00] VITALS: BP 108/67; PULSE 84; RESP 18; TEMP 36.3; O2SAT 93
[2021-04-19 23:29] VITALS: BP 124/73; PULSE 88; RESP 18; TEMP 37.1; O2SAT 95
[2021-04-20] VITALS (19 sets, daily range): BP systolic 91–127; BP diastolic 53–85; PULSE 69–89; RESP 16–20; TEMP 36–37.3; O2SAT 92–97
--- NOTE | 2021-04-20 01:32 | CONS_ITS ---
DATE OF SERVICE: 04/19/2021 REASON FOR CONSULTATION: Elevated LFTs and choledocholithiasis. HISTORY OF PRESENT ILLNESS: This has been obtained from the patient via a Russian medical transcription editor on the telephone. The patient is a 45-year-old healthy female, who describes that she was well up until about 4 days ago when she developed the onset of right upper quadrant pain, which was quite severe. This prompted her visit to the ER and subsequent admission. Since admission, she has continued to have pain on an intermittent basis primarily in the right upper quadrant. She did have some nausea, but there has been no vomiting. She denies any diarrhea. She has not noticed any signs of jaundice. She does describe some similar episodes in the past but never anything long lasting nor this severe. Prior to the onset of her pain, she was feeling well. She typically would have a good appetite without any chronic heartburn nor dysphagia. She denied any particular change in bowel habits, hematochezia, nor melena. She denies a previous history of liver disease in herself nor family members. She does not use any significant amounts of alcohol. CURRENT MEDICATIONS: Include acetaminophen p.r.n., morphine p.r.n., Zofran p.r.n., oxycodone p.r.n., and IV Zosyn. PAST MEDICAL HISTORY: She denies any history of heart disease, diabetes, stroke, lung disease, nor kidney disease. She denies any previous surgeries. SOCIAL HISTORY: She currently does not work. She is to a woman. She stopped smoking about 2 months ago and does not use any significant amounts of alcohol. FAMILY HISTORY: Noncontributory. REVIEW OF SYSTEMS: CONSTITUTIONAL: Prior to the last several days, she had been feeling well at home with good energy and good appetite. SKIN: No rash. No pruritus. CARDIAC: No chest pain. PULMONARY: No coughing, no hemoptysis. GI: As above. PHYSICAL EXAMINATION: GENERAL: The patient is a pleasant alert female, in no distress. SKIN: Warm and dry. EYES: Anicteric sclerae. NECK: Supple. CARDIAC: Normal S1, S2. ABDOMEN: Soft with normal bowel sounds. She is quite tender in the right upper quadrant, but without palpable mass. The remainder of the abdomen is soft with only minimal tenderness. EXTREMITIES: Without edema. LABORATORY DATA: Initial white blood cell count of 21.5 with repeat today of 14.3, platelets 210,000, hemoglobin 12.2. Normal electrolytes, BUN, and creatinine. Her LFTs did rise since admission with laboratories today showing a total bilirubin of 1.4, direct bilirubin 0.7, AST 63, ALT 64, and alkaline phosphatase 76. Albumin is 3.9. Lipase was less than 4. Her imaging studies have included MRCP describing a normal-appearing liver. The gallbladder wall appeared thickened and edematous with gallstones in the gallbladder. The common bile duct was slightly distended at 7 mm with a 3 mm stone seen in the distal bile duct. Pancreas appeared normal. The ultrasound described common bile duct of only 4 mm and gallstones with some thickening of the gallbladder wall. IMPRESSION: Given the patient's clinical history, I suspect the majority of her discomfort is in relation to cholecystitis rather than biliary disease. Nonetheless, given the presence of the small common duct stone and the rise in her LFTs, I would recommend preoperative ERCP to remove the stone preoperatively. At this point, she is having pain but does not appear to be toxic nor have cholangitis. As such, the procedure will be done tomorrow. Full consent has been obtained from her for the ERCP, including risks of bleeding, perforation, cholangitis, and pancreatitis. In the meantime, I would continue antibiotics, supportive care, and follow up laboratories tomorrow. I have stopped the subcu heparin for the time being. This has been discussed with the patient in detail and she is comfortable with the plan. Thank you for the consultation. MD MINH Ramírez/DALTON / [phone]
[2021-04-20] MEDS: Lactated Ringers 1,000 ML 100 ML IVCONT ×3 (02:10→18:03)
[2021-04-20] MEDS: Piperacillin Sodium/Tazobactam 3.375 GM in 0.9 % Sodium Chloride 50 ML IV ×4 (03:34→21:00)
[2021-04-20] MEDS: Morphine Sulfate 4 MG/ML CARTRIDGE 3 MG IVPUSH (04:05)
[2021-04-20 06:26] LABS: Hematocrit 37.8 % (37.0-47.0); Hemoglobin 12.3 g/dl (12.0-16.0); Mean Corpuscular HGB Conc 32.5 g/dl (31.0-35.0); Mean Corpuscular Hemoglobin 28.9 pg (27.0-33.0); Mean Corpuscular Volume 88.7 fL (80.0-98.0); Mean Platelet Volume 8.8 fL (9.4-12.3); Platelet Count 313 X10*3/uL (160-400); Red Blood Count 4.26 X10*6/uL (4.20-5.50); Red Cell Distribution Width 12.1 % (11.0-16.0); White Blood Count 15.2 X10*3/uL (4.8-10.8)
[2021-04-20 06:27] LABS: INTERNATIONAL NORM RATIO 1.6 (0.9-1.1); Prothrombin Time 18.8 SEC (9.9-13.0)
[2021-04-20 06:44] LABS: Alanine Aminotransferase 57 U/L (0-31); Albumin Level 3.8 g/dL (3.5-5.0); Alkaline Phosphatase 89 U/L (39-117); Anion Gap 12 (12-20); Aspartate Amino Transferase 31 U/L (5-31); Bilirubin Direct 0.6 mg/dL (0.0-0.5); Bilirubin Total 1.4 mg/dL (0.0-1.0); Blood Urea Nitrogen 9 mg/dL (9-16); Calcium 9.4 mg/dL (8.4-10.2); Carbon Dioxide 27 mmol/L (22-29); Chloride 103 mmol/L (96-108); Creatinine Clr Calc Pharmacy 104.4; Estimated Glomerular Filt Rate > 60; Glucose Random 102 mg/dL (60-115); Potassium 3.9 mmol/L (3.3-5.1); Sodium 138 mmol/L (135-145); Total Protein 6.9 g/dL (6.5-8.0)
[2021-04-20] MEDS: oxyCODONE HCl Immed Release 5 MG TABLET 10 MG PO (06:47)
--- NOTE | 2021-04-20 06:57 | HO.POSTANES ---
Post Anesthesia Evaluation Post Anesthesia Evaluation Vital Signs: Vital Signs Temp Pulse Resp BP Pulse Ox 04/20/21 04:00 99.1 F 89 18 117/65 93 04/19/21 23:29 98.7 F 88 18 124/73 95 04/19/21 20:00 97.3 F 84 18 108/67 93 Anesthesia: General Endotracheal-GETA Mental Status: Awake Pain Control: Satisfactory (pain most of the night) Nausea/Vomiting: None Hydration: Adequate Anesthesia-Related Issues: No Anes. Related Issues
--- NOTE | 2021-04-20 09:41 | P.PNGS_ITS ---
Subjective Subjective Date of Service: 04/20/21 Interval history: No events reported Still has pain but seems to be better No nausea or vomiting Physical Exam Verdana 4l Vital Signs: Verdana 4d Verdana 4d Vital Signs: Verdana 4d Verdana 4Bd Last Vital Signs Verdana 4d 4d Negra 4d Temp 97.8 F 04/20/21 08:00 4d Pulse 85 04/20/21 08:00 Steam Shovel Operator New 4d Resp 16 04/20/21 08:00 BP 115/70 04/20/21 08:00 Pulse Ox 93 04/20/21 08:00 BMI result Body Mass Index 28.3 Const: General: no acute distress Eyes: Other: No obvious jaundice Resp: Effort & Inspection: normal respiratory effort Cardio: Rate: regular rate GI: Palpation (GI): Soft to palpation, Tenderness to palpation present (GI) (Epigastric area and right upper quadrant), no guarding and not rigid Objective Data Active Medications Acetaminophen (Acetaminophen Supp 650 Mg Supp.Rect) 650 mg NM Q6H PRN PRN Reason: Pain, Mild (Pain Scale 1-3) Piperacillin Sod/Tazobactam (Sod 3.375 gm/ Sodium Chloride) 50 mls @ 100 mls/hr IV Q6H [facility] Last Admin: 04/20/21 09:06 Dose: 100 mls/hr Documented by: TAMAR Lactated Ringer's (Lr) 1,000 mls @ 100 mls/hr IVCONT .Q10H [facility] Last Admin: 04/20/21 05:47 Dose: 100 mls/hr Documented by: VARINDER Morphine Sulfate (Morphine Sulfate 4 Mg/Ml Cartridge) 3 mg IVPUSH Q4H PRN; Protocol PRN Reason: Pain, Severe (Pain Scale 7-10) Last Admin: 04/20/21 04:05 Dose: 3 mg Documented by: VARINDER Ondansetron HCl (Ondansetron Hcl 4 Mg/2 Ml Vial) 4 mg IVPUSH Q8H PRN PRN Reason: Nausea and Vomiting Oxycodone HCl (Oxycodone Hcl Immed Release 5 Mg Tablet) 10 mg PO Q4H PRN PRN Reason: Pain, Moderate (Pain Scale 4-6 Last Admin: 04/20/21 06:47 Dose: 10 mg Documented by: TONY Pharmacy Consult (Consult Rx Perform Med Rec) 1 each MISCELLANE ONCE PRN PRN Reason: Consult order Sodium Chloride (0.9 % Sodium Chloride Flush 3 Ml Syringe) 3 ml IVFLUSH QSHIFT [facility] Last Admin: 04/20/21 06:47 Dose: Not Given Documented by: TONY Non-Admin Reason: IV Running Labs CBC & Chem 7: 04/20/21 06:00 04/20/21 06:00 Labs: Laboratory Results - last 24 hr 04/20/21 04/20/21 04/20/21 06:00 06:00 06:00 MCV 88.7 MCH 28.9 MCHC 32.5 RDW 12.1 Plt Count 313 MPV 8.8 L Absolute Nucleated RBC 0.000 Nucleated RBC % (auto) 0.0 PT 18.8 H INR 1.6 H Anion Gap 12 Estim Creat Clear Calc 104.4 Estimated GFR > 60 Random Glucose 102 Calcium 9.4 Total Bilirubin 1.4 H Direct Bilirubin 0.6 H AST 31 D ALT 57 H Alkaline Phosphatase 89 Total Protein 6.9 Albumin 3.8 Microbiology Microbiology Results: Microbiology 04/18/21 12:11 Blood Culture - Preliminary Blood - Venous No growth after 24 hours. 04/18/21 11:27 Blood Culture - Preliminary Blood - Venous No growth after 24 hours. 04/18/21 00:00 Urine Culture - Final Urine clean catch - Urine herron top Procedures Date of Service Date of Service: 04/20/21 Progress Note: A&P Assessment and plan (1) Acute cholecystitis: Status: Acute Assessment and Plan: Continue IV antibiotics Lap moises once common bile duct is cleared gallstones Pain management IV fluids (2) Choledocholithiasis: Status: Acute Assessment and Plan: LFTs stable Scheduled for ERCP today Patient understands the plan Discussed with GI Lap moises wants CBD clear Fall Risk Details Current Medications: Current Medications Acetaminophen (Acetaminophen Supp 650 Mg Supp.Rect) 650 mg NM Q6H PRN PRN Reason: Pain, Mild (Pain Scale 1-3) Piperacillin Sod/Tazobactam (Sod 3.375 gm/ Sodium Chloride) 50 mls @ 100 mls/hr IV Q6H [facility] Last Admin: 04/20/21 09:06 Dose: 100 mls/hr Documented by: Lactated Ringer's (Lr) 1,000 mls @ 100 mls/hr IVCONT .Q10H [facility] Last Admin: 04/20/21 05:47 Dose: 100 mls/hr Documented by: Morphine Sulfate (Morphine Sulfate 4 Mg/Ml Cartridge) 3 mg IVPUSH Q4H PRN; Protocol PRN Reason: Pain, Severe (Pain Scale 7-10) Last Admin: 04/20/21 04:05 Dose: 3 mg Documented by: Ondansetron HCl (Ondansetron Hcl 4 Mg/2 Ml Vial) 4 mg IVPUSH Q8H PRN PRN Reason: Nausea and Vomiting Oxycodone HCl (Oxycodone Hcl Immed Release 5 Mg Tablet) 10 mg PO Q4H PRN PRN Reason: Pain, Moderate (Pain Scale 4-6 Last Admin: 04/20/21 06:47 Dose: 10 mg Documented by: Pharmacy Consult (Consult Rx Perform Med Rec) 1 each MISCELLANE ONCE PRN PRN Reason: Consult order Sodium Chloride (0.9 % Sodium Chloride Flush 3 Ml Syringe) 3 ml IVFLUSH QSHIFT [facility] Last Admin: 04/20/21 06:47 Dose: Not Given Documented by: Time Spent With Patient Time: Total time spent is greater than 50% in coordination of care (as documented) at patient's floor/unit and/or counseling patient: Time with patient: 15 - 24 minutes Quality Stroke Does the patient have a stroke diagnosis?: No VTE Prior VTE?: No VTE Risk Level:: Medical - moderate - high VTE Device Contraindication: N/A - Device Ordered VTE Drug Contraindication: N/A - Med Ordered
[2021-04-20] MEDS: Phytonadione (Vit K1) 10 MG in 0.9 % Sodium Chloride 50 ML 51 MG IV (11:06)
--- NOTE | 2021-04-20 12:10 | P.CONAN_ITS ---
[facility] Active Problems Active Problems: All Active Problems (Updated 04/20/21 @ 09:43 by Regan Breaux MD) Choledocholithiasis (Acute) Acute cholecystitis (Acute) Past Medical History Medical History (Updated 04/20/21 @ 09:43 by Regan Breaux MD) Choledocholithiasis GERD (gastroesophageal reflux disease) Family History Family history of problems with anesthesia: No Surgical History History of Problems with Anesthesia: No Social History Social History Household Members: Family Housing: House Do you presently have visiting nurse or other home services: No Patient Tobacco Use Status: Never used Tobacco Use of substances other than those prescribed or required for medical reasons: No Currently Displaying Signs/Symptoms of Drug Intoxication Withdrawal: No Have you been hit, kicked, punched, or otherwise hurt by someone within the past year? If so, by whom?: No Do you feel safe in your current relationship?: No Current Relationship Is there a partner from a previous relationship who is making you feel unsafe now?: No Are you made to feel afraid or neglected: No Advance Directives: No Advance Directives Information Provided: Yes Do you have thoughts of harming others: None Do you have a plan to hurt others: No Plan Recently lost weight without trying: No Nutrition Risks: No Nutritional Risk Patient : No service: No Current occupational status: unemployed Meds Allergies Allergy/AdvReac Type Severity Reaction Status Date / Time No Known Allergies Allergy Verified 04/18/21 08:54 Active Medications: Current Medications Acetaminophen (Acetaminophen Supp 650 Mg Supp.Rect) 650 mg ID Q6H PRN PRN Reason: Pain, Mild (Pain Scale 1-3) Piperacillin Sod/Tazobactam (Sod 3.375 gm/ Sodium Chloride) 50 mls @ 100 mls/hr IV Q6H [facility] Last Infusion: 04/20/21 11:06 Dose: Infused Documented by: Lactated Ringer's (Lr) 1,000 mls @ 100 mls/hr IVCONT .Q10H ANDRE Last Admin: 04/20/21 05:47 Dose: 100 mls/hr Documented by: Morphine Sulfate (Morphine Sulfate 4 Mg/Ml Cartridge) 3 mg IVPUSH Q4H PRN; Protocol PRN Reason: Pain, Severe (Pain Scale 7-10) Last Admin: 04/20/21 04:05 Dose: 3 mg Documented by: Ondansetron HCl (Ondansetron Hcl 4 Mg/2 Ml Vial) 4 mg IVPUSH Q8H PRN PRN Reason: Nausea and Vomiting Oxycodone HCl (Oxycodone Hcl Immed Release 5 Mg Tablet) 10 mg PO Q4H PRN PRN Reason: Pain, Moderate (Pain Scale 4-6 Last Admin: 04/20/21 06:47 Dose: 10 mg Documented by: Pharmacy Consult (Consult Rx Perform Med Rec) 1 each MISCELLANE ONCE PRN PRN Reason: Consult order Sodium Chloride (0.9 % Sodium Chloride Flush 3 Ml Syringe) 3 ml IVFLUSH QSHIFT [facility] Last Admin: 04/20/21 06:47 Dose: Not Given Documented by: Home Medications Medication Instructions Recorded Confirmed Last Taken Type No Known Home Meds 04/18/21 04/18/21 Unknown History Exam Exam Date and Time: April 20, 2021 1210 Height,Weight and Vital Signs: Height 5 ft 4 in Weight 74.843 kg Last Vital Signs Temp 97.8 F 04/20/21 08:00 Pulse 85 04/20/21 08:00 Resp 16 04/20/21 08:00 BP 115/70 04/20/21 08:00 Pulse Ox 93 04/20/21 08:00 Pertinent Lab Results Pertinent Lab Results: Laboratory Tests 04/18/21 04/18/21 04/18/21 09:00 09:00 09:16 WBC 21.5 H RBC 5.15 Hgb 14.8 Hct 44.6 MCV 86.6 MCH 28.7 MCHC 33.2 RDW 12.1 Plt Count 375 MPV 8.6 L Immature Gran % (Auto) 0.4 Neut % (Auto) 80.7 H Lymph % (Auto) 9.2 L [place] % (Auto) 9.6 Eos % (Auto) 0.0 Baso % (Auto) 0.1 Lymph # (Auto) 2.0 [place] # (Auto) 2.1 H Eos # (Auto) 0.0 Baso # (Auto) 0.0 Abs Immat Gran (auto) 0.09 H Absolute Neuts (auto) 17.3 H Absolute Nucleated RBC 0.000 Nucleated RBC % (auto) 0.0 Smear Tech's Comments VERIFIED PT INR Sodium Potassium Chloride Carbon Dioxide Anion Gap BUN Creatinine Estim Creat Clear Calc Estimated GFR Random Glucose Lactic Acid Calcium Total Bilirubin Direct Bilirubin AST ALT Alkaline Phosphatase Total Protein Albumin Lipase Urine Color YELLOW Urine Appearance HAZY Urine pH 5.5 Ur Specific [place] >= 1.030 H Urine Protein TRACE Urine Glucose (UA) NEG Urine Ketones NEG Urine Blood 3+ H Urine Nitrite NEG Ur Leukocyte Esterase 1+ H Urine RBC 15-29 H Urine WBC 10-14 H Ur Squamous Epith Cells 3+ Urine Bacteria TRACE Urine Mucus 2+ Urine Trichomonas NOTED Urine Test NEGATIVE Chlam trachomat DNA PCR COVID-19 ([facility]ERS) COVID-19 Clin Com N.gonorrhoeae DNA (PCR) 04/18/21 04/18/21 04/18/21 09:16 09:17 10:38 WBC RBC Hgb Hct MCV MCH MCHC RDW Plt Count MPV Immature Gran % (Auto) Neut % (Auto) Lymph % (Auto) [place] % (Auto) Eos % (Auto) Baso % (Auto) Lymph # (Auto) [place] # (Auto) Eos # (Auto) Baso # (Auto) Abs Immat Gran (auto) Absolute Neuts (auto) Absolute Nucleated RBC Nucleated RBC % (auto) Smear Tech's Comments PT INR Sodium 135 Potassium 4.3 Chloride 100 Carbon Dioxide 26 Anion Gap 13 BUN 10 Creatinine 0.71 Estim Creat Clear Calc 97.0 Estimated GFR > 60 Random Glucose 134 H Lactic Acid Calcium 10.6 H Total Bilirubin 0.8 Direct Bilirubin 0.3 AST 13 ALT 16 Alkaline Phosphatase 73 Total Protein 8.5 H Albumin 4.7 Lipase < 4 L Urine Color Urine Appearance Urine pH Ur Specific [place] Urine Protein Urine Glucose (UA) Urine Ketones Urine Blood Urine Nitrite Ur Leukocyte Esterase Urine RBC Urine WBC Ur Squamous Epith Cells Urine Bacteria Urine Mucus Urine Trichomonas Urine Test Chlam trachomat DNA PCR NOT DETECTED COVID-19 ([facility]) Negative COVID-19 Clin Com See Note N.gonorrhoeae DNA (PCR) NOT DETECTED 04/18/21 04/19/21 04/19/21 11:26 05:42 05:42 WBC 14.3 H RBC 4.25 Hgb 12.2 Hct 37.3 MCV 87.8 MCH 28.7 MCHC 32.7 RDW 12.3 Plt Count 310 MPV 8.8 L Immature Gran % (Auto) 0.3 Neut % (Auto) 69.6 Lymph % (Auto) 19.1 L [place] % (Auto) 10.6 Eos % (Auto) 0.2 Baso % (Auto) 0.2 Lymph # (Auto) 2.7 [place] # (Auto) 1.5 H Eos # (Auto) 0.0 Baso # (Auto) 0.0 Abs Immat Gran (auto) 0.05 H Absolute Neuts (auto) 10.0 H Absolute Nucleated RBC 0.000 Nucleated RBC % (auto) 0.0 Smear Tech's Comments VERIFIED PT INR Sodium 139 Potassium 3.9 Chloride 106 Carbon Dioxide 27 Anion Gap 10 L BUN 11 Creatinine 0.70 Estim Creat Clear Calc 98.4 Estimated GFR > 60 Random Glucose 108 Lactic Acid 1.2 Calcium 9.3 D Total Bilirubin 1.4 H Direct Bilirubin 0.7 H AST 63 H ALT 64 H Alkaline Phosphatase 76 Total Protein 6.9 Albumin 3.9 Lipase Urine Color Urine Appearance Urine pH Ur Specific [place] Urine Protein Urine Glucose (UA) Urine Ketones Urine Blood Urine Nitrite Ur Leukocyte Esterase Urine RBC Urine WBC Ur Squamous Epith Cells Urine Bacteria Urine Mucus Urine Trichomonas Urine Test Chlam trachomat DNA PCR COVID-19 ([facility]) COVID-19 Clin Com N.gonorrhoeae DNA (PCR) 04/20/21 04/20/21 04/20/21 06:00 06:00 06:00 WBC 15.2 H RBC 4.26 Hgb 12.3 Hct 37.8 MCV 88.7 MCH 28.9 MCHC 32.5 RDW 12.1 Plt Count 313 MPV 8.8 L Immature Gran % (Auto) Neut % (Auto) Lymph % (Auto) [place] % (Auto) Eos % (Auto) Baso % (Auto) Lymph # (Auto) [place] # (Auto) Eos # (Auto) Baso # (Auto) Abs Immat Gran (auto) Absolute Neuts (auto) Absolute Nucleated RBC 0.000 Nucleated RBC % (auto) 0.0 Smear Tech's Comments PT 18.8 H INR 1.6 H Sodium 138 Potassium 3.9 Chloride 103 Carbon Dioxide 27 Anion Gap 12 BUN 9 Creatinine 0.66 Estim Creat Clear Calc 104.4 Estimated GFR > 60 Random Glucose 102 Lactic Acid Calcium 9.4 Total Bilirubin 1.4 H Direct Bilirubin 0.6 H AST 31 D ALT 57 H Alkaline Phosphatase 89 Total Protein 6.9 Albumin 3.8 Lipase Urine Color Urine Appearance Urine pH Ur Specific [place] Urine Protein Urine Glucose (UA) Urine Ketones Urine Blood Urine Nitrite Ur Leukocyte Esterase Urine RBC Urine WBC Ur Squamous Epith Cells Urine Bacteria Urine Mucus Urine Trichomonas Urine Test Chlam trachomat DNA PCR COVID-19 ([facility]) COVID-19 Clin Com N.gonorrhoeae DNA (PCR) Airway Mallampati Class: II TM Dist: >3cm Neck ROM: Full Partial: Upper and Lower Heart: rrr Lungs: cta Assessment and Plan Assessment Anesthesia Assessment: Anesthesia Plan Discussed and Chart Reviewed Final Anesthetic Review Family History of Problems with Anesthesia: No History of Problems with Anesthesia: No NPO: Yes ASA Class: II Final Preanesthetic Review: No Changes in Pt Med Stat, Meds/Allgs Chart Reviewed and Consent Obtained/Reviewed Patient Risk: Intermediate Procedure Risk: Intermediate Anesthetic Plan Anesthetic Plan: GA Disposition: Standard PACU
[2021-04-20 14:23] LABS: INTERNATIONAL NORM RATIO 1.6 (0.9-1.1); Prothrombin Time 18.3 SEC (9.9-13.0)
--- NOTE | 2021-04-20 15:27 | PM.OP ---
Brief Operative Note Date of Service: 04/20/21 Pre-op diagnosis: Choledocholithiasis Post-op diagnosis: same Procedure: ERCP with sphincterotomy and CBD stone removal Surgeon: Edgardo Santo Anesthesia: GETA Was an [employer] Travel Counselor used for this Procedure?: No Estimated blood loss (mL): 2.0 Pathology: none sent Condition: stable Disposition: PACU
--- NOTE | 2021-04-20 15:30 | PM.EVENT ---
Event Note Date of Service: 04/20/21 Event Note: GI-ERCP- Full note dictated Findings: 1. 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 Major papilla was situated on the inner edge of the diverticulum and had to be pulled forward with the sphincterotome in order to gain access 3. Selective cannulation of the biliary tract obtained over a straight guide wire with selective cholangiograms revealing a single filling defect in the distal CBD 4. Performed an approx. 6-8mm sphincterotomy without any immediate complication 5. CBD swept with a 12mm balloon and a single small black stone was pulled into the duodenum 6. F/U cholangiograms were negative for any further filling defects and the 12mm balloon pulled easily into the duodenum 7. F/U cholangiograms appeared normal and there was partial filling of the cystic duct 8. Good drainage of bile and dye noted, without purulence 9. Pancreatic duct was not cannulated nor injected with dye. Imp: Choledocholithiasis Rec: Observe, F/U PT/INR--she received Vit K at approx 11AM today. The 2PM PT/INR was basically unchanged. Given the degree of elevation of the PT/INR and today's sphincterotomy, I have ordered 2u FFP to minimize risk of bleeding. A F/U CBC has been ordered for later today, as well as F/U labs for the AM. If stable she should be able to proceed with CCY on 04/21. Called her brother, Caio Goldsmith,with a [place] drawer in plain loom on the phone. However, only got his voicemail so the drawer in plain loom left him a VM in Sudanese. I discussed the findings with the patient with the medical administrative assistant as well. I advised her of the plan for the FFP and she is agreeable. She is presently comfortable. Thanks
--- NOTE | 2021-04-20 16:49 | PM.EVENT ---
Event Note Date of Service: 04/20/21 Event Note: Patient underwent ERCP this afternoon with stone retrieval and sphincterotomy She actually says that she feels much better and pain has resolved She looks comfortable Stable vital signs Plan is to proceed with laparoscopic cholecystectomy tomorrow This had been discussed with her and she understands
[2021-04-20 18:17] LABS: MANUAL DIFF FLAG NO
[2021-04-20 18:25] LABS: Basophils Percent Auto 0.1 % (0-2); Eosinophils Percent Auto 0.1 % (0-4); Hematocrit 36.9 % (37.0-47.0); Hemoglobin 12.1 g/dl (12.0-16.0); Imm Gran Abs Auto 0.04 X10*3/uL (0.00-0.03); Imm Gran Pct Auto 0.2 % (0.0-0.4); Lymphocytes Absolute Auto 1.5 X10*3/uL (1.2-4.9); Lymphocytes Percent Auto 8.8 % (20-40); Mean Corpuscular HGB Conc 32.8 g/dl (31.0-35.0); Mean Corpuscular Hemoglobin 28.9 pg (27.0-33.0); Mean Corpuscular Volume 88.1 fL (80.0-98.0); Mean Platelet Volume 8.6 fL (9.4-12.3); Monocytes Absolute Auto 0.5 X10*3/uL (0.1-1.2); Monocytes Percent Auto 2.9 % (2-11); Neutrophils Absolute Auto 14.7 x10*3/uL (2.0-8.3); Neutrophils Percent Auto 87.9 % (45-73); Platelet Count 322 X10*3/uL (160-400); Red Blood Count 4.19 X10*6/uL (4.20-5.50); White Blood Count 16.7 X10*3/uL (4.8-10.8)
[2021-04-20] MEDS: 0.9 % Sodium Chloride Flush 3 ML SYRINGE IVFLUSH (21:01)
[2021-04-21] VITALS (17 sets, daily range): BP systolic 92–123; BP diastolic 57–82; PULSE 70–86; RESP 16–26; TEMP 36–37.2; O2SAT 93–98
--- NOTE | 2021-04-21 | OP_ITS ---
SURGEON: Edgardo Santo MD INDICATIONS: The patient presents for evaluation of elevated LFTs, abdominal pain, and abnormal MRCP suggestive of a common bile duct stone. Full consent was obtained from her for this, including risks of bleeding, perforation, cholangitis, and pancreatitis. The consent has been obtained with a medical secretary receptionist. PREOPERATIVE DIAGNOSIS: POSTOPERATIVE DIAGNOSIS: Choledocholithiasis. PROCEDURE PERFORMED: Endoscopic retrograde cholangiopancreatography with sphincterotomy and removal of common bile duct stone. ESTIMATED BLOOD LOSS: COMPLICATIONS: ANESTHESIA: General anesthesia and glucagon 0.5 mg IV x2 doses. ASSISTANTS: SPECIMENS: PREOPERATIVE DIAGNOSES: Choledocholithiasis. DESCRIPTION OF PROCEDURE: The patient was placed in the semi-prone position. The [place] video duodenoscope was passed in the posterior oropharynx and upper esophagus. The scope entered into the stomach and was advanced to pylorus. The duodenum was cannulated to the descending portion. The region of the major papilla was notable for a large diverticulum, which was somewhat filled with vegetable debris. The papilla itself was oriented along the inner edge of the diverticulum. I was able to pull it forward with the sphincterotome. Using the Familonet triple lumen sphincterotome, a selective cannulation of the bile duct was obtained over a straight guidewire. At that point, selective cholangiograms revealed good filling of the intrahepatic and extrahepatic bile ducts, which all appeared normal other than a single small filling defect in the very distal bile duct. The cystic duct filled partially as well. I then performed an approximately 6 to 8 mm sphincterotomy over the guidewire without any immediate complication. There was good drainage of bile, but there was no purulence. I then used a 12 mm balloon to sweep the bile duct and removed a small black stone into the duodenum. Followup cholangiograms revealed a normal appearing intrahepatic and extrahepatic bile ducts without any further definitive filling defects, although at times, there was some air in the bile duct. However, the duct was swept several more times with the 12 mm balloon and the balloon was pulled easily into the duodenum, without any further stones noted. There remained good drainage of bile and dye, without any purulence. There was no bleeding from the sphincterotomy site. The pancreas was not cannulated with the wire nor injected with dye. At that point, the procedure was terminated. She tolerated the procedure well and was returned to the recovery area in stable condition. IMPRESSION: 1. Choledocholithiasis, status post sphincterotomy and stone extraction. 2. Large periampullary diverticulum. PLAN: The patient will be observed overnight. Of note, her PT with INR were elevated prior to the procedure and she did receive vitamin K. PT and INR just before the procedure was not significantly changed from the one from this morning. Therefore, given the sphincterotomy, as well as her need for surgery tomorrow, I have ordered 2 units of FFP to hopefully minimize the risk of bleeding today after the sphincterotomy. She will have followup laboratories later today and in the morning as well. She will continue on antibiotics. She will be kept n.p.o. except for some sips of liquid and ice for tonight and then n.p.o. after midnight for the gallbladder surgery tomorrow. This has all been discussed with her, including the transfusions of FFP, with the medical secretary receptionist on the telephone. I did call her brother, but only got his voicemail and the mixed livestock farmer left a message for him in this regard as well. MD MINH Ramírez/DALTON / [id number] MTDD
[2021-04-21] MEDS: Piperacillin Sodium/Tazobactam 3.375 GM in 0.9 % Sodium Chloride 50 ML IV (04:06)
[2021-04-21 06:08] LABS: MANUAL DIFF FLAG NO
[2021-04-21 06:13] LABS: Basophils Percent Auto 0.1 % (0-2); Hematocrit 33.4 % (37.0-47.0); Hemoglobin 11.2 g/dl (12.0-16.0); Imm Gran Abs Auto 0.05 X10*3/uL (0.00-0.03); Imm Gran Pct Auto 0.4 % (0.0-0.4); Lymphocytes Absolute Auto 1.8 X10*3/uL (1.2-4.9); Lymphocytes Percent Auto 15.6 % (20-40); Mean Corpuscular HGB Conc 33.5 g/dl (31.0-35.0); Mean Corpuscular Hemoglobin 29.4 pg (27.0-33.0); Mean Corpuscular Volume 87.7 fL (80.0-98.0); Mean Platelet Volume 8.8 fL (9.4-12.3); Monocytes Absolute Auto 0.9 X10*3/uL (0.1-1.2); Monocytes Percent Auto 7.6 % (2-11); Neutrophils Absolute Auto 8.6 x10*3/uL (2.0-8.3); Neutrophils Percent Auto 76.3 % (45-73); Platelet Count 309 X10*3/uL (160-400); Red Blood Count 3.81 X10*6/uL (4.20-5.50); Red Cell Distribution Width 11.9 % (11.0-16.0); White Blood Count 11.3 X10*3/uL (4.8-10.8)
[2021-04-21 06:33] LABS: INTERNATIONAL NORM RATIO 1.5 (0.9-1.1); Prothrombin Time 17.3 SEC (9.9-13.0)
[2021-04-21 06:36] LABS: Alanine Aminotransferase 55 U/L (0-31); Albumin Level 3.7 g/dL (3.5-5.0); Alkaline Phosphatase 91 U/L (39-117); Aspartate Amino Transferase 27 U/L (5-31); Bilirubin Direct 0.3 mg/dL (0.0-0.5); Bilirubin Total 0.7 mg/dL (0.0-1.0); Total Protein 6.7 g/dL (6.5-8.0)
[2021-04-21 06:41] LABS: Alanine Aminotransferase 55 U/L (0-31); Albumin Level 3.7 g/dL (3.5-5.0); Alkaline Phosphatase 93 U/L (39-117); Anion Gap 14 (12-20); Aspartate Amino Transferase 27 U/L (5-31); Bilirubin Direct 0.4 mg/dL (0.0-0.5); Bilirubin Total 0.7 mg/dL (0.0-1.0); Blood Urea Nitrogen 13 mg/dL (9-16); Calcium 9.4 mg/dL (8.4-10.2); Carbon Dioxide 26 mmol/L (22-29); Chloride 107 mmol/L (96-108); Creatinine Clr Calc Pharmacy 109.3; Estimated Glomerular Filt Rate > 60; Glucose Fasting 104 mg/dL (60-99); Potassium 4.9 mmol/L (3.3-5.1); Sodium 142 mmol/L (135-145); Total Protein 6.8 g/dL (6.5-8.0)
--- NOTE | 2021-04-21 07:19 | HO.ANESPROP2 ---
HPI - Anesthesia Eval Consult details Narrative: 45 F for cholecystectomy PMF Active Problems Active Problems: All Active Problems (Updated 04/20/21 @ 09:43 by Regan Breaux MD) Choledocholithiasis (Acute) Acute cholecystitis (Acute) Past Medical History Medical History (Updated 04/20/21 @ 09:43 by Regan Breaux MD) Choledocholithiasis GERD (gastroesophageal reflux disease) Family History Family history of problems with anesthesia: No Surgical History History of Problems with Anesthesia: No Social History Social History Household Members: Family Housing: House Do you presently have visiting nurse or other home services: No Patient Tobacco Use Status: Former Tobacco user Second Hand Smoke Exposure: No Use of substances other than those prescribed or required for medical reasons: No Currently Displaying Signs/Symptoms of Drug Intoxication Withdrawal: No Have you been hit, kicked, punched, or otherwise hurt by someone within the past year? If so, by whom?: No Do you feel safe in your current relationship?: No Current Relationship Is there a partner from a previous relationship who is making you feel unsafe now?: No Are you made to feel afraid or neglected: No Are you DNR?: No Advance Directives: No Advance Directives Information Provided: Yes Advance Directives on File: No Do you have thoughts of harming others: None Do you have a plan to hurt others: No Plan Recently lost weight without trying: No Nutrition Risks: No Nutritional Risk Patient : No service: No Current occupational status: unemployed Meds Allergies Allergy/AdvReac Type Severity Reaction Status Date / Time No Known Allergies Allergy Verified 04/18/21 08:54 Active Medications: Current Medications Acetaminophen (Acetaminophen Supp 650 Mg Supp.Rect) 650 mg TX Q6H PRN PRN Reason: Pain, Mild (Pain Scale 1-3) Fentanyl (Fentanyl Citrate/Pf 100 Mcg/2 Ml Vial) 50 mcg IVPUSH Q5M PRN; Protocol PRN Reason: Pain, Severe (Pain Scale 7-10) Piperacillin Sod/Tazobactam (Sod 3.375 gm/ Sodium Chloride) 50 mls @ 100 mls/hr IV Q6H ANDRE Last Infusion: 04/21/21 06:11 Dose: Infused Documented by: Lactated Ringer's (Lr) 1,000 mls @ 100 mls/hr IVCONT .Q10H [facility] Last Admin: 04/21/21 06:24 Dose: Not Given Documented by: Promethazine HCl 12.5 mg/ (Sodium Chloride) 50.5 mls @ 202 mls/hr IV ONCE PRN PRN Reason: Nausea and Vomiting Cefotetan Disodium 2 gm/ (Sodium Chloride) 50 mls @ 100 mls/hr IV ONCE ONE Stop: 04/21/21 07:40 Medication (No Anticoagulants) 1 each MISCELLANE DAILY [facility] Stop: 04/28/21 15:22 Medication (No Nsaids) 1 each MISCELLANE DAILY [facility] Stop: 04/28/21 15:22 Medication (No Aspirin) 1 each MISCELLANE DAILY [facility] Stop: 04/28/21 15:23 Morphine Sulfate (Morphine Sulfate 4 Mg/Ml Cartridge) 3 mg IVPUSH Q4H PRN; Protocol PRN Reason: Pain, Severe (Pain Scale 7-10) Last Admin: 04/20/21 04:05 Dose: 3 mg Documented by: Ondansetron HCl (Ondansetron Hcl 4 Mg/2 Ml Vial) 4 mg IVPUSH Q8H PRN PRN Reason: Nausea and Vomiting Oxycodone HCl (Oxycodone Hcl Immed Release 5 Mg Tablet) 10 mg PO Q4H PRN PRN Reason: Pain, Moderate (Pain Scale 4-6 Last Admin: 04/20/21 06:47 Dose: 10 mg Documented by: Oxycodone HCl (Oxycodone Hcl Immed Release 5 Mg Tablet) 5 mg PO ONCE PRN PRN Reason: Pain, Severe (Pain Scale 7-10) Pharmacy Consult (Consult Rx Perform Med Rec) 1 each MISCELLANE ONCE PRN PRN Reason: Consult order Sodium Chloride (0.9 % Sodium Chloride Flush 3 Ml Syringe) 3 ml IVFLUSH QSHIFT [facility] Last Admin: 04/20/21 21:01 Dose: 3 ml Documented by: Home Medications Medication Instructions Recorded Confirmed Last Taken Type No Known Home Meds 04/18/21 04/18/21 Unknown History Exam Exam Date and Time: April 21, 2021 0719 Height,Weight and Vital Signs: Height 5 ft 4 in Weight 74.843 kg Last Vital Signs Temp 97.4 F 04/21/21 06:33 Pulse 80 04/21/21 06:33 Resp 16 04/21/21 06:33 BP 120/73 04/21/21 06:33 Pulse Ox 95 04/21/21 06:33 Pertinent Lab Results Pertinent Lab Results: Laboratory Tests 04/18/21 04/18/21 04/18/21 09:00 09:00 09:16 WBC 21.5 H RBC 5.15 Hgb 14.8 Hct 44.6 MCV 86.6 MCH 28.7 MCHC 33.2 RDW 12.1 Plt Count 375 MPV 8.6 L Immature Gran % (Auto) 0.4 Neut % (Auto) 80.7 H Lymph % (Auto) 9.2 L [place] % (Auto) 9.6 Eos % (Auto) 0.0 Baso % (Auto) 0.1 Lymph # (Auto) 2.0 [place] # (Auto) 2.1 H Eos # (Auto) 0.0 Baso # (Auto) 0.0 Abs Immat Gran (auto) 0.09 H Absolute Neuts (auto) 17.3 H Absolute Nucleated RBC 0.000 Nucleated RBC % (auto) 0.0 Smear Tech's Comments VERIFIED PT INR Sodium Potassium Chloride Carbon Dioxide Anion Gap BUN Creatinine Estim Creat Clear Calc Estimated GFR Random Glucose Fasting Glucose Lactic Acid Calcium Total Bilirubin Direct Bilirubin AST ALT Alkaline Phosphatase Total Protein Albumin Lipase Urine Color YELLOW Urine Appearance HAZY Urine pH 5.5 Ur Specific [place] >= 1.030 H Urine Protein TRACE Urine Glucose (UA) NEG Urine Ketones NEG Urine Blood 3+ H Urine Nitrite NEG Ur Leukocyte Esterase 1+ H Urine RBC 15-29 H Urine WBC 10-14 H Ur Squamous Epith Cells 3+ Urine Bacteria TRACE Urine Mucus 2+ Urine Trichomonas NOTED Urine Test NEGATIVE Chlam trachomat DNA PCR COVID-19 ([facility]ERS) COVID-19 Clin Com N.gonorrhoeae DNA (PCR) Blood Type Antibody Screen 04/18/21 04/18/21 04/18/21 09:16 09:17 10:38 WBC RBC Hgb Hct MCV MCH MCHC RDW Plt Count MPV Immature Gran % (Auto) Neut % (Auto) Lymph % (Auto) [place] % (Auto) Eos % (Auto) Baso % (Auto) Lymph # (Auto) [place] # (Auto) Eos # (Auto) Baso # (Auto) Abs Immat Gran (auto) Absolute Neuts (auto) Absolute Nucleated RBC Nucleated RBC % (auto) Smear Tech's Comments PT INR Sodium 135 Potassium 4.3 Chloride 100 Carbon Dioxide 26 Anion Gap 13 BUN 10 Creatinine 0.71 Estim Creat Clear Calc 97.0 Estimated GFR > 60 Random Glucose 134 H Fasting Glucose Lactic Acid Calcium 10.6 H Total Bilirubin 0.8 Direct Bilirubin 0.3 AST 13 ALT 16 Alkaline Phosphatase 73 Total Protein 8.5 H Albumin 4.7 Lipase < 4 L Urine Color Urine Appearance Urine pH Ur Specific [place] Urine Protein Urine Glucose (UA) Urine Ketones Urine Blood Urine Nitrite Ur Leukocyte Esterase Urine RBC Urine WBC Ur Squamous Epith Cells Urine Bacteria Urine Mucus Urine Trichomonas Urine Test Chlam trachomat DNA PCR NOT DETECTED COVID-19 ([facility]) Negative COVID-19 Clin Com See Note N.gonorrhoeae DNA (PCR) NOT DETECTED Blood Type Antibody Screen 04/18/21 04/19/21 04/19/21 11:26 05:42 05:42 WBC 14.3 H RBC 4.25 Hgb 12.2 Hct 37.3 MCV 87.8 MCH 28.7 MCHC 32.7 RDW 12.3 Plt Count 310 MPV 8.8 L Immature Gran % (Auto) 0.3 Neut % (Auto) 69.6 Lymph % (Auto) 19.1 L [place] % (Auto) 10.6 Eos % (Auto) 0.2 Baso % (Auto) 0.2 Lymph # (Auto) 2.7 [place] # (Auto) 1.5 H Eos # (Auto) 0.0 Baso # (Auto) 0.0 Abs Immat Gran (auto) 0.05 H Absolute Neuts (auto) 10.0 H Absolute Nucleated RBC 0.000 Nucleated RBC % (auto) 0.0 Smear Tech's Comments VERIFIED PT INR Sodium 139 Potassium 3.9 Chloride 106 Carbon Dioxide 27 Anion Gap 10 L BUN 11 Creatinine 0.70 Estim Creat Clear Calc 98.4 Estimated GFR > 60 Random Glucose 108 Fasting Glucose Lactic Acid 1.2 Calcium 9.3 D Total Bilirubin 1.4 H Direct Bilirubin 0.7 H AST 63 H ALT 64 H Alkaline Phosphatase 76 Total Protein 6.9 Albumin 3.9 Lipase Urine Color Urine Appearance Urine pH Ur Specific [place] Urine Protein Urine Glucose (UA) Urine Ketones Urine Blood Urine Nitrite Ur Leukocyte Esterase Urine RBC Urine WBC Ur Squamous Epith Cells Urine Bacteria Urine Mucus Urine Trichomonas Urine Test Chlam trachomat DNA PCR COVID-19 (ANDERS) COVID-19 Clin Com N.gonorrhoeae DNA (PCR) Blood Type Antibody Screen 04/20/21 04/20/21 04/20/21 06:00 06:00 06:00 WBC 15.2 H RBC 4.26 Hgb 12.3 Hct 37.8 MCV 88.7 MCH 28.9 MCHC 32.5 RDW 12.1 Plt Count 313 MPV 8.8 L Immature Gran % (Auto) Neut % (Auto) Lymph % (Auto) [place] % (Auto) Eos % (Auto) Baso % (Auto) Lymph # (Auto) [place] # (Auto) Eos # (Auto) Baso # (Auto) Abs Immat Gran (auto) Absolute Neuts (auto) Absolute Nucleated RBC 0.000 Nucleated RBC % (auto) 0.0 Smear Tech's Comments PT 18.8 H INR 1.6 H Sodium 138 Potassium 3.9 Chloride 103 Carbon Dioxide 27 Anion Gap 12 BUN 9 Creatinine 0.66 Estim Creat Clear Calc 104.4 Estimated GFR > 60 Random Glucose 102 Fasting Glucose Lactic Acid Calcium 9.4 Total Bilirubin 1.4 H Direct Bilirubin 0.6 H AST 31 D ALT 57 H Alkaline Phosphatase 89 Total Protein 6.9 Albumin 3.8 Lipase Urine Color Urine Appearance Urine pH Ur Specific [place] Urine Protein Urine Glucose (UA) Urine Ketones Urine Blood Urine Nitrite Ur Leukocyte Esterase Urine RBC Urine WBC Ur Squamous Epith Cells Urine Bacteria Urine Mucus Urine Trichomonas Urine Test Chlam trachomat DNA PCR COVID-19 (ANDERS) COVID-19 Clin Com N.gonorrhoeae DNA (PCR) Blood Type Antibody Screen 04/20/21 04/20/21 04/20/21 14:09 14:09 18:15 WBC 16.7 H RBC 4.19 L Hgb 12.1 Hct 36.9 L MCV 88.1 MCH 28.9 MCHC 32.8 RDW 12.0 Plt Count 322 MPV 8.6 L Immature Gran % (Auto) 0.2 Neut % (Auto) 87.9 H Lymph % (Auto) 8.8 L [place] % (Auto) 2.9 Eos % (Auto) 0.1 Baso % (Auto) 0.1 Lymph # (Auto) 1.5 [place] # (Auto) 0.5 Eos # (Auto) 0.0 Baso # (Auto) 0.0 Abs Immat Gran (auto) 0.04 H Absolute Neuts (auto) 14.7 H Absolute Nucleated RBC 0.000 Nucleated RBC % (auto) 0.0 Smear Tech's Comments PT 18.3 H INR 1.6 H Sodium Potassium Chloride Carbon Dioxide Anion Gap BUN Creatinine Estim Creat Clear Calc Estimated GFR Random Glucose Fasting Glucose Lactic Acid Calcium Total Bilirubin Direct Bilirubin AST ALT Alkaline Phosphatase Total Protein Albumin Lipase Urine Color Urine Appearance Urine pH Ur Specific [place] Urine Protein Urine Glucose (UA) Urine Ketones Urine Blood Urine Nitrite Ur Leukocyte Esterase Urine RBC Urine WBC Ur Squamous Epith Cells Urine Bacteria Urine Mucus Urine Trichomonas Urine Test Chlam trachomat DNA PCR COVID-19 (ANDERS) COVID-19 Clin Com N.gonorrhoeae DNA (PCR) Blood Type B Positive Antibody Screen NEGATIVE 04/21/21 04/21/21 04/21/21 05:53 05:53 05:53 WBC 11.3 H RBC 3.81 L Hgb 11.2 L Hct 33.4 L MCV 87.7 MCH 29.4 MCHC 33.5 RDW 11.9 Plt Count 309 MPV 8.8 L Immature Gran % (Auto) 0.4 Neut % (Auto) 76.3 H Lymph % (Auto) 15.6 L [place] % (Auto) 7.6 Eos % (Auto) 0.0 Baso % (Auto) 0.1 Lymph # (Auto) 1.8 [place] # (Auto) 0.9 Eos # (Auto) 0.0 Baso # (Auto) 0.0 Abs Immat Gran (auto) 0.05 H Absolute Neuts (auto) 8.6 H Absolute Nucleated RBC 0.000 Nucleated RBC % (auto) 0.0 Smear Tech's Comments PT 17.3 H INR 1.5 H Sodium Potassium Chloride Carbon Dioxide Anion Gap BUN Creatinine Estim Creat Clear Calc Estimated GFR Random Glucose Fasting Glucose Lactic Acid Calcium Total Bilirubin 0.7 Direct Bilirubin 0.3 AST 27 ALT 55 H Alkaline Phosphatase 91 Total Protein 6.7 Albumin 3.7 Lipase Urine Color Urine Appearance Urine pH Ur Specific [place] Urine Protein Urine Glucose (UA) Urine Ketones Urine Blood Urine Nitrite Ur Leukocyte Esterase Urine RBC Urine WBC Ur Squamous Epith Cells Urine Bacteria Urine Mucus Urine Trichomonas Urine Test Chlam trachomat DNA PCR COVID-19 (ANDERS) COVID-19 Clin Com N.gonorrhoeae DNA (PCR) Blood Type Antibody Screen 04/21/21 05:53 WBC RBC Hgb Hct MCV MCH MCHC RDW Plt Count MPV Immature Gran % (Auto) Neut % (Auto) Lymph % (Auto) [place] % (Auto) Eos % (Auto) Baso % (Auto) Lymph # (Auto) [place] # (Auto) Eos # (Auto) Baso # (Auto) Abs Immat Gran (auto) Absolute Neuts (auto) Absolute Nucleated RBC Nucleated RBC % (auto) Smear Tech's Comments PT INR Sodium 142 Potassium 4.9 D Chloride 107 Carbon Dioxide 26 Anion Gap 14 BUN 13 Creatinine 0.63 Estim Creat Clear Calc 109.3 Estimated GFR > 60 Random Glucose Fasting Glucose 104 H Lactic Acid Calcium 9.4 Total Bilirubin 0.7 Direct Bilirubin 0.4 AST 27 ALT 55 H Alkaline Phosphatase 93 Total Protein 6.8 Albumin 3.7 Lipase Urine Color Urine Appearance Urine pH Ur Specific [place] Urine Protein Urine Glucose (UA) Urine Ketones Urine Blood Urine Nitrite Ur Leukocyte Esterase Urine RBC Urine WBC Ur Squamous Epith Cells Urine Bacteria Urine Mucus Urine Trichomonas Urine Test Chlam trachomat DNA PCR COVID-19 ([facility]ERS) COVID-19 Clin Com N.gonorrhoeae DNA (PCR) Blood Type Antibody Screen Airway Mallampati Class: II TM Dist: >3cm Neck ROM: Full Partial: Upper and Lower Loose/Missing/Broken Teeth: Yes Heart: rrr Lungs: bl breath sounds Assessment and Plan Assessment Anesthesia Assessment: Anesthesia Plan Discussed Final Anesthetic Review Family History of Problems with Anesthesia: No History of Problems with Anesthesia: No NPO: Yes ASA Class: II Final Preanesthetic Review: Consent Obtained/Reviewed (with telephone Mine Environmental Engineer ) and Anes Risks/Benef Reviewed Patient Risk: Intermediate Procedure Risk: Intermediate Anesthetic Plan Anesthetic Plan: GA Disposition: Inp. Admit - Standard Bed
--- NOTE | 2021-04-21 08:35 | HO.POSTANES ---
Post Anesthesia Evaluation Post Anesthesia Evaluation Vital Signs: Vital Signs Temp Pulse Resp BP Pulse Ox 04/21/21 06:33 97.4 F 80 16 120/73 95 04/21/21 03:45 96.8 F 73 18 112/72 96 04/21/21 00:07 98.7 F 70 22 H 92/57 L 04/20/21 23:51 96.8 F 74 18 106/60 93 Anesthesia: General Endotracheal-GETA Mental Status: Awake Pain Control: Satisfactory Nausea/Vomiting: None Hydration: Adequate Anesthesia-Related Issues: No Anes. Related Issues
--- NOTE | 2021-04-21 09:21 | W.PM.OPN ---
Operative Note Operative Note Date of Service: 04/21/21 Narrative: Preop diagnosis: Acute cholecystitis, CBD stone, status post ERCP Postop diagnosis: The same Procedure: Laparoscopic cholecystectomy Surgeon: Regan Breaux MD licensed physical therapist assistant: ROLAND Ramirez The patient is a 45 year female admitted because of epigastric and right upper quadrant pain. Her imaging study showed acute cholecystitis with gallstones. She was scheduled to therefore undergo an inpatient laparoscopic cholecystectomy 2 days ago but there was a bump in her bilirubin. An MRCP was therefore done which showed a CBD stone. She underwent ERCP with stone extraction and sphincterotomy yesterday. She therefore was scheduled for cholecystectomy after successful ERCP. She understood the technique of laparoscopic cholecystectomy and open cholecystectomy. She was aware of the risks, benefits, and alternatives. She was brought to the operating room placed supine on the table under general anesthesia via endotracheal tube. Was prepped and draped in the usual sterile fashion. A surgical time-out was done. The patient received Cefotan 2 g IV preoperatively I made a short incision on the supraumbilical month margin using blade 15. This was carried down through the full-thickness of the skin and subcutaneous fat down to the fascia. The fascia was incised. The peritoneum was entered. Through this incision a Get port was introduced. Pneumoperitoneum was introduced to a pressure of 15 mm hg. From here on the rest of procedure was done under vision with the laparoscope. With laparoscopic visualization, I inserted a 5/12 mm port in the epigastric area below the subcostal margin through a small stab incision. 5 mm port introduced a small incision below the subcostal margin along the anterior axillary line and the midclavicular line. Graspers were placed through these working ports. The patient was placed in head-up and [id number] position. the gallbladder was seen and was markedly distended, with very thickened wall. Therefore had to decompress this was an aspirating needle. Once this was done I was able to apply a grasper at the fundus of the gallbladder which was used to retract the gallbladder cephalad. There was note of some adherent omentum on the anterior wall which had to carefully stripped off using the [place] dissector. By doing so was able to expose the anterior wall and the pouch of the gallbladder. I was able to apply another grasper towards the pouch and this was used to retract the gallbladder laterally. At this point therefore the gallbladder was being retracted in a cephalad and lateral fashion to put the approximate area of the cystic duct on stretch. There was note of a lot of indurated fibrillar tissue surrounding the neck. We had to do a lot of careful dissection with the [place] dissector to strip this off. The peritoneum was very thickened in view of the acute inflammation and we had to do careful dissection to strip this to expose the cystic duct. I was able to identify the cystic duct and its confluence with the neck of the gallbladder. The cystic artery was clearly seen and this was actually running almost anterior to the cystic duct. Since the cystic artery was in the way of further dissection I carefully dissected this using the [place] dissector until was able to clearly define this. I applied clips on this with 2 clips being applied distally and the cystic artery was transected between clips with Endo scissors. At this point I had achieved a critical view of the hepatocystic triangle. There were no other tubular structures although there was note of a lot of indurated fibro areolar tissue in the hilum. I continued to define the cystic artery and 3 I was able to confirm its confluence with the neck of the gallbladder. Once this was achieved, I applied clips with 2 clips being applied distally and the cystic duct was transected between clips with Endo scissors. With traction on the gallbladder away from the liver bed, I proceeded to continue to dissect the hilum. there was note of some very fine arterial branches which I had to clip and divide between clips with Endo scissors. I then used the electrocautery spatula to divide across the nurse of the hilum until I reached the interface of the gallbladder wall and the liver bed. The gallbladder wall was very edematous and markedly thickened. I then proceeded to incise this and of the gallbladder wall using the electrocautery spatula and defined a plane of dissection between the gallbladder wall and the liver bed. I proceeded with this dissection with a combination of the electrocautery itself as well as with blunt dissection using the tip of the spatula to separate the gallbladder along this plane. This plane was not very well defined in view of the acute inflammation and very thickened wall. We therefore had to proceed slowly and had to alternate between the spatula itself as well as the electrocautery. This part of the procedure took an extended period time in view of the very poor planes and marked induration. I was able to completely separate the gallbladder from the liver bed. The gallbladder was retrieved through an endobag through the umbilical incision. I reinserted all ports and re-insufflated. I examined the subhepatic space. There was note of good hemostasis. I irrigated this and suctioned out the irrigant fluid. I observed all 4 quadrants. There was no other pathology nor any evidence of any bowel injury nor bile leak. We observed the subhepatic space. Again this was noted to be dry. Once hemostasis was ensured, I proceeded to then desufflate Throughthe port sites. I removed all ports under vision with the laparoscope. The umbilical port was removed last. The fascia of the umbilical incision was closed with a [id number] Dexon 0 stitch. Skin closure was achieved on all incisions using Dexon 4-0 subcuticular running sutures. Steri-Strips and dressings were applied. All incisions were infiltrated with Marcaine 0.5% for postop analgesia. The procedure was then completed . The patient tolerated procedure well. There were no complication noted. Initial And final counts of sponges and instruments were correct. Estimated blood loss was about 100 cc. The patient was extubated without difficulty and transferred to the recovery room with stable vital signs.
--- NOTE | 2021-04-21 09:25 | PM.OP ---
Brief Operative Note Date of Service: 04/21/21 <MALLY Stephens Last Filed: 04/21/21 09:26> Pre-op diagnosis: acute cholecystitis, choledocolithiasis <MALLY Stephens Last Filed: 04/21/21 09:26> Post-op diagnosis: same <MALLY Stephens Last Filed: 04/21/21 09:26> Procedure: laparoscopic cholecystectomy <Lisa Ramirez PA-C - Last Filed: 04/21/21 09:26> Implants: None <MALLY Stephens Last Filed: 04/21/21 09:26> Surgeon: JAKUB BREAUX MD <MALLY Stephens Last Filed: 04/21/21 09:26> Anesthesia: GETA <Lisa Ramirez PA-C - Last Filed: 04/21/21 09:26> Was an Price Changer used for this Procedure?: Yes <Lisa Ramirez PA-C - Last Filed: 04/21/21 09:26> No <Jakub Breaux MD - Last Filed: 04/21/21 15:00> Price Changer: Lisa Ramirez <MALLY Stephens Last Filed: 04/21/21 09:26> Estimated blood loss (mL): 20 <MALLY Stephens Last Filed: 04/21/21 09:26> Pathology: other (gallbladder) <MALLY Stephens Last Filed: 04/21/21 09:26> Condition: stable <MALLY Stephens Last Filed: 04/21/21 09:26> Disposition: PACU <MALLY Stephens Last Filed: 04/21/21 09:26>
[2021-04-21] MEDS: HYDROmorphone HCl 0.5 MG/0.5 ML SYRINGE 0.25 MG IVPUSH ×4 (09:58→10:29)
--- NOTE | 2021-04-21 10:19 | MHC.CM.PN ---
PER DOCUMENTATION PATIENT ADMITTED FOR CHOLEYSTECTOMY S/P LAP CHOLEY ON 04/20/21 . PATIENT IS STAYIONG WITH HER BROTHER, SHE HAS BEEN HERE FROM [facility] FOR 30 DAYS NOW, SHE RECIVED TWO COVID 19 VACCINATION IN [place] AND ONE PFZIER VACCINATION HERE IN THE [place]. [facility] IS QORKING WITH PATIENT AND HER BROTHER IFTIKHAR [phone] I APPLICATION FOR [employer]. [facility] TO COMPLETION OF APPLICATION IS THEY NEED PHTO ID OR PASSPORT , PATIENTS BROTHER DOES NOT HAVE IT , TRYING TO SEE IF PATIENT HAS IT , DOES NOT SPEAK TURKISH , NEEDS SHOWROOM MANAGER discharge plan home with javy no services ,
[2021-04-21] MEDS: oxyCODONE HCl Immed Release 5 MG TABLET 10 MG PO ×3 (12:39→21:12)
--- NOTE | 2021-04-21 14:59 | PM.EVENT ---
Event Note Date of Service: 04/21/21 Event Note: Seen postop Underwent laparoscopic cholecystectomy earlier She says she is comfortable Good pain control Looks well Abdomen soft Stable vital signs Pain management Likely home tomorrow She understands plan - science interpreter services used Case discussed with social media campaign manager
--- NOTE | 2021-04-21 17:33 | PC.NURSE ---
1700 band aid dsgs intact on abd. bowel sounds hypoactive. OOB, amb in room. voiding in bathroom. Awilda supper. Oxycodone with eff
[2021-04-21] MEDS: 0.9 % Sodium Chloride Flush 3 ML SYRINGE IVFLUSH (21:12)
[2021-04-22] VITALS: BP 92/65; PULSE 92; RESP 17; TEMP 37.2; O2SAT 93
[2021-04-22] MEDS: oxyCODONE HCl Immed Release 5 MG TABLET 10 MG PO ×4 (01:25→14:39)
[2021-04-22] MEDS: Lactated Ringers 1,000 ML 100 ML IVCONT (01:48)
[2021-04-22 04:00] VITALS: BP 98/62; PULSE 81; RESP 18; TEMP 36.9; O2SAT 94
[2021-04-22 07:58] VITALS: BP 106/69; PULSE 88; RESP 18; TEMP 37.1; O2SAT 96
--- NOTE | 2021-04-22 08:04 | P.PNGS_ITS ---
Subjective Subjective Date of Service: 04/22/21 <Lisa Ramirez PA-C - Last Filed: 04/22/21 08:09> 04/22/21 <Regan Breaux MD - Last Filed: 04/22/21 14:02> Interval history: Very sore this morning, pain at incision sites. Medication not really helping. Tolerating diet without N/V. OOB to bathroom but reports ambulating very slowly due to pain. <Lisa Ramirez PA-C - Last Filed: 04/22/21 08:09> Physical Exam Verdana 4l Vital Signs: Verdana 4d Verdana 4d Vital Signs: Verdana 4d Verdana 4Bd Last Vital Signs Verdana 4d Early Childhood Assistant New 4d Early Childhood Assistant New 4d Temp 98.4 F 04/22/21 04:00 Early Childhood Assistant New 4d Pulse 81 04/22/21 04:00 Early Childhood Assistant New 4d Resp 18 04/22/21 04:00 BP 98/62 04/22/21 04:00 Pulse Ox 94 04/22/21 04:00 BMI result Body Mass Index 28.3 <Lisa Ramirez PA-C - Last Filed: 04/22/21 08:09> Const: General: comfortable, no acute distress and alert <MALLY Stephens Last Filed: 04/22/21 08:09> Orientation/consciousness: patient oriented x3 <MALLY Stephens Last Filed: 04/22/21 08:09> Resp: Effort & Inspection: normal respiratory effort <MALLY Stephens Last Filed: 04/22/21 08:09> GI: Inspection: No distended and Yes incision (dressings intact) <MALLY Stephens Last Filed: 04/22/21 08:09> Palpation (GI): Soft to palpation, Tenderness to palpation present (GI) (incisional), no guarding and not rigid <MALLY Stephens Last Filed: 04/22/21 08:09> Percussion: Yes normal to percussion <MALLY Stephens Last Filed: 04/22/21 08:09> Skin: General skin exam: no rashes or lesions noted <Lisa Ramirez PA-C - Last Filed: 04/22/21 08:09> Neuro: General: patient oriented x3 <Lisa Ramirez PA-C - Last Filed: 04/22/21 08:09> Extrem: General: Yes no clubbing, cyanosis or edema <Lisa Ramirez PA-C - Last Filed: 04/22/21 08:09> Objective Data Active Medications Acetaminophen (Acetaminophen 325 Mg Tablet) 650 mg PO Q6H PRN PRN Reason: fever, pain Fentanyl (Fentanyl Citrate/Pf 100 Mcg/2 Ml Vial) 25 mcg IVPUSH Q5M PRN; Protocol PRN Reason: Pain, Moderate (Pain Scale 4-6 Lactated Ringer's (Lr) 1,000 mls @ 100 mls/hr IVCONT .Q10H ANDRE Last Admin: 04/22/21 01:48 Dose: 100 mls/hr Documented by: FILIPPO Promethazine HCl 12.5 mg/ (Sodium Chloride) 50.5 mls @ 202 mls/hr IV ONCE PRN PRN Reason: Nausea and Vomiting Medication (No Anticoagulants) 1 each MISCELLANE DAILY [facility] Stop: 04/28/21 15:22 Medication (No Nsaids) 1 each MISCELLANE DAILY [facility] Stop: 04/28/21 15:22 Medication (No Aspirin) 1 each MISCELLANE DAILY [facility] Stop: 04/28/21 15:23 Morphine Sulfate (Morphine Sulfate 4 Mg/Ml Cartridge) 3 mg IVPUSH Q4H PRN; Protocol PRN Reason: Pain, Severe (Pain Scale 7-10) Last Admin: 04/20/21 04:05 Dose: 3 mg Documented by: VARINDER Ondansetron HCl (Ondansetron Hcl 4 Mg/2 Ml Vial) 4 mg IVPUSH Q8H PRN PRN Reason: Nausea and Vomiting Oxycodone HCl (Oxycodone Hcl Immed Release 5 Mg Tablet) 5 mg PO ONCE PRN PRN Reason: Pain, Severe (Pain Scale 7-10) Oxycodone HCl (Oxycodone Hcl Immed Release 5 Mg Tablet) 5 mg PO Q4H PRN PRN Reason: Pain, Moderate (Pain Scale 4-6 Oxycodone HCl (Oxycodone Hcl Immed Release 5 Mg Tablet) 10 mg PO Q4H PRN PRN Reason: Pain, Severe (Pain Scale 7-10) Last Admin: 04/22/21 06:49 Dose: 10 mg Documented by: TONY Pharmacy Consult (Consult Rx Perform Med Rec) 1 each MISCELLANE ONCE PRN PRN Reason: Consult order Sodium Chloride (0.9 % Sodium Chloride Flush 3 Ml Syringe) 3 ml IVFLUSH QSHIFT [facility] Last Admin: 04/22/21 06:47 Dose: Not Given Documented by: TONY Non-Admin Reason: IV Running <Lisa Ramirez PA-C - Last Filed: 04/22/21 08:09> Labs CBC & Chem 7: : 04/21/21 05:53 04/21/21 05:53 <Lisa Ramirez PA-C - Last Filed: 04/22/21 08:09> Procedures Date of Service Date of Service: 04/22/21 <Lisa Ramirez PA-C - Last Filed: 04/22/21 08:09> Progress Note: A&P Assessment and plan (1) Choledocholithiasis: Status: Acute <Lisa Ramirez PA-C - Last Filed: 04/22/21 08:09> (2) Acute cholecystitis: Status: Acute <Lisa Ramirez PA-C - Last Filed: 04/22/21 08:09> Assessment and Plan: patient says she still has incisional pain and does not feel ready to go but will re-evaluate later tolerating diet looks well abdomen soft, benign sclerae anicteric game show host used she understands plan seen and examined independently - agree with ROLAND Ramirez <Regan Breuax MD - Last Filed: 04/22/21 14:02> Plan 45 year old female admitted with choledocolithiasis, acute cholecystitis s/p ERCP and lapchole (POD #1). She is doing fairly well post op but reports incisional pain. VSS. Abd with appropriate post op tenderness, dressings intact. Will reassess later today- if more comfortable in regards to pain control, stable for d/c to home. Patient comfortable with plan. [facility] game show host used to see patient. <Lisa Ramirez PA-C - Last Filed: 04/22/21 08:09> Fall Risk Details Current Medications: Current Medications Acetaminophen (Acetaminophen 325 Mg Tablet) 650 mg PO Q6H PRN PRN Reason: fever, pain Fentanyl (Fentanyl Citrate/Pf 100 Mcg/2 Ml Vial) 25 mcg IVPUSH Q5M PRN; Protocol PRN Reason: Pain, Moderate (Pain Scale 4-6 Lactated Ringer's (Lr) 1,000 mls @ 100 mls/hr IVCONT .Q10H [facility] Last Admin: 04/22/21 01:48 Dose: 100 mls/hr Documented by: Promethazine HCl 12.5 mg/ (Sodium Chloride) 50.5 mls @ 202 mls/hr IV ONCE PRN PRN Reason: Nausea and Vomiting Medication (No Anticoagulants) 1 each MISCELLANE DAILY [facility] Stop: 04/28/21 15:22 Medication (No Nsaids) 1 each MISCELLANE DAILY [facility] Stop: 04/28/21 15:22 Medication (No Aspirin) 1 each MISCELLANE DAILY [facility] Stop: 04/28/21 15:23 Morphine Sulfate (Morphine Sulfate 4 Mg/Ml Cartridge) 3 mg IVPUSH Q4H PRN; Protocol PRN Reason: Pain, Severe (Pain Scale 7-10) Last Admin: 04/20/21 04:05 Dose: 3 mg Documented by: Ondansetron HCl (Ondansetron Hcl 4 Mg/2 Ml Vial) 4 mg IVPUSH Q8H PRN PRN Reason: Nausea and Vomiting Oxycodone HCl (Oxycodone Hcl Immed Release 5 Mg Tablet) 5 mg PO ONCE PRN PRN Reason: Pain, Severe (Pain Scale 7-10) Oxycodone HCl (Oxycodone Hcl Immed Release 5 Mg Tablet) 5 mg PO Q4H PRN PRN Reason: Pain, Moderate (Pain Scale 4-6 Oxycodone HCl (Oxycodone Hcl Immed Release 5 Mg Tablet) 10 mg PO Q4H PRN PRN Reason: Pain, Severe (Pain Scale 7-10) Last Admin: 04/22/21 06:49 Dose: 10 mg Documented by: Pharmacy Consult (Consult Rx Perform Med Rec) 1 each MISCELLANE ONCE PRN PRN Reason: Consult order Sodium Chloride (0.9 % Sodium Chloride Flush 3 Ml Syringe) 3 ml IVFLUSH QSHIFT [facility] Last Admin: 04/22/21 06:47 Dose: Not Given Documented by: <MALLY Stephens Last Filed: 04/22/21 08:09> Time Spent With Patient Time: Total time spent is greater than 50% in coordination of care (as documented) at patient's floor/unit and/or counseling patient: <MALLY Stephens Last Filed: 04/22/21 08:09> Time with patient: 15 - 24 minutes <Lisa Ramirez PA-C - Last Filed: 04/22/21 08:09> Quality Stroke Does the patient have a stroke diagnosis?: No <Lisa Ramirez PA-C - Last Filed: 04/22/21 08:09> VTE Prior VTE?: No <MALLY Stephens Last Filed: 04/22/21 08:09> VTE Risk Level:: Medical - moderate - high <MALLY Stephens Last Filed: 04/22/21 08:09> VTE Device Contraindication: N/A - Device Ordered <MALLY Stephens Last Filed: 04/22/21 08:09> VTE Drug Contraindication: N/A - Med Ordered <MALLY Stephens Last Filed: 04/22/21 08:09>
[2021-04-22] MEDS: Acetaminophen 325 MG TABLET 650 MG PO ×2 (08:48→14:39)
--- NOTE | 2021-04-22 09:04 | MHC.CM.PN ---
Addendum entered by Karla Marvin 04/22/21 13:31: PER BRAID FOLDER AT [facility] WHOM MET PATIENT AGAIN TODAY , COMMUNICATION ERROR YESTERDAY PATIENT WILL BE STAYING HERE AND NOT RETURNING BACK TO [place] SO THE TELEPRINTER INSTALLER has been working with her to file the [employer] application Original Note: NURSE COLLEGE ADMISSIONS COUNSELOR NOTE ELECTRONIC MEDICAL RECORD REVIEWED ,CHERYL DISCUSSED WITH NEVIN PATIENT IS TO BE DISCHARGED HOME TODAY. PER CONVERSATION WITH FINANCIAL SERVICE REPRESENTATIVES ,WHOM MET WITH PATIENT , WITH TELEPHONE LUGGAGE REPAIRER, SHE RPEOTRD TO HER THAT SHE WAS HERE ON VACATION AND HAS PLANS TO RETURN BACK TO [place]. THUS SHE WILL NOT BE ABLE TO APPLY FOR [employer], THE TELEPRINTER INSTALLER INFORMED ME THAT SHE WILL REFER TO FINANCIAL AND COMPLETE HARDSHIP PAPERWORK AND MAKE OUT PAYEMENTS FOR THIS HOSPPITAL STAY . PATIENT WAS WAS VERY GLAD ABOUT THIS . DISCHARGE PLAN HOME WHERE SHE WILL BE STAYING WITH HER BROTHER TRANSPORTTION -FAMILY FOLLOW UP WITH SURGEON PER DISCHARGE INSTRUCTIONS
[2021-04-22 10:51] VITALS: BP 97/63; PULSE 95; RESP 18; TEMP 36.6; O2SAT 91
--- NOTE | 2021-04-22 11:25 | HO.POSTANES ---
Post Anesthesia Evaluation Post Anesthesia Evaluation Vital Signs: Vital Signs Temp Pulse Resp BP Pulse Ox 04/22/21 10:51 97.8 F 95 18 97/63 91 L 04/22/21 07:58 98.8 F 88 18 106/69 96 04/22/21 04:00 98.4 F 81 18 98/62 94 04/22/21 00:00 98.9 F 92 17 92/65 93 Anesthesia: General Endotracheal-GETA Mental Status: Awake Pain Control: Satisfactory Nausea/Vomiting: None Hydration: Adequate Anesthesia-Related Issues: No Anes. Related Issues
[2021-04-22 11:41] VITALS: BP 105/63; PULSE 91; RESP 18; TEMP 36.4; O2SAT 92
--- NOTE | 2021-04-22 13:54 | P.EN_ITS ---
Event Note Date of Service: 04/22/21 Event Note: patient now stating that she wants to go home says she feels much more comfortable says she okay to go home with pain pills explained to her instructions via translator and interpreter again she says she understands
[2021-04-22] MEDS: 0.9 % Sodium Chloride Flush 3 ML SYRINGE IVFLUSH (14:40)
--- NOTE | 2021-04-28 13:38 | P.DS_ITS ---
DS: Providers Provider Date of Service: 04/28/21 Date of admission: 04/18/21 12:48 Primary care physician: Unknown Physician Attending physician on admission: Regan Breaux Consults: 04/19/21 12:27 Consult to Gastroenterology Routine Consulting Provider: Edgardo Santo Reason for consultation: CBD stone Has provider been notified: No DS: Diagnosis Discharge Diagnosis (1) Choledocholithiasis: Status: Acute (2) Acute cholecystitis: Status: Acute DS: Summary Hospital Course Hospital Course: BRIEF HPI: Mimi Ann Sa is a 45 year old Slovenian speaking female who came to the emergency room because of right upper quadrant pain and epigastric pain for about 3 days.? She does not recall any aggravating factor. She denies any fever or chills. She says that she did not have any appetite yesterday because of her pain. She denies any similar episodes of pain in the past. She says she is in good health otherwise and denies any medications. She had a leukocytosis and ABD ultrasound and CAT scan findings were suggestive of acute cholecystitis with gallstones. HOSPITAL COURSE: She was admitted to the surgical service for further treatment of the acute cholecystitis. She was started on IV zosyn.? Further treatment options were discussed and she elected to proceed with laparoscopic cholecystectomy possible open. She was added onto the OR schedule for the following day. However, that morning she had elevated LFTs. MRCP was obtained which was abnormal and suggestive of a CBD stone. GI was therefore consulted for possible ERCP. On 04/20/21, endoscopic retrograde cholangiopancreatography with sphincterotomy and removal of common bile duct stone was performed by Dr. Santo. The patient tolerated the procedure well. The following day her LFTs improved significantly. It was therefore decided to proceed with her cholecystectomy that day. On 04/21/21, a laparoscopic cholecystectomy was performed by Dr. Breaux without complication. The gallbladder was markedly distended with a very thickened wall. The patient tolerated the procedure well, completed routine recovery in PACU and was admitted for observation. She had an uncomplicated recovery course. On POD#1, she had difficulty with pain control that morning. She was tolerating a solid diet. Her abdomen was benign with appropriate post op tenderness and dressings clean and intact. She was assessed later in the day and felt improved with better pain control. She felt ready for discharge. She was discharged to home on 04/22/21 in stable condition. Status at Discharge Functional status at discharge: independent ambulation Overall status at discharge: patient is progressing back to baseline Time Spent with Patient Time attestation: Total time spent providing and/or coordinating discharge services: Discharge coordination time: Greater than 30 minutes Quality: Stroke Does the patient have a stroke diagnosis?: No Physical Exam Vital Signs: Vital Signs: Last Vital Signs Temp 97.5 F 04/22/21 11:41 Pulse 91 04/22/21 11:41 Resp 18 04/22/21 11:41 BP 105/63 04/22/21 11:41 Pulse Ox 92 04/22/21 11:41 BMI result Body Mass Index 28.3 DS: Data Data Completed and Pending Completed studies during hospitalization [Text1]: 04/21/21 08:54 Surgical [PTH] Routine Gallbladder, cholecystectomy:? Severe acute and chronic cholecystitis and cholelithiasis; negative for dysplasia and carcinoma. ? Procedures Dilation of Common Bile Duct, Via Natural or Artificial Opening Endoscopic (04/18/21) Resection of Gallbladder, Percutaneous Endoscopic Approach (04/18/21) Transfusion of Nonautologous Frozen Plasma into Peripheral Vein, Percutaneous Approach (04/18/21) Discharge Plan Discharge Patient Disposition: Home, Self-Care Discharge Diagnosis: acute cholecystitis and choledocholithiasis Referrals: Physician,Unknown J [Primary Care Provider] - 1 Week Discharge Medications: New oxycodone-acetaminophen [Percocet] 5-325 mg tablet 1 tab PO Q4-6H PRN (Reason: pain, severe) Qty: 30 0RF ibuprofen 600 mg tablet 600 mg PO Q6H PRN (Reason: pain) Qty: 30 0RF Discharge Orders: Discharge Order (Routine); Ordered 04/22/21 Ordered By: Regan Breaux Activity on Discharge: No heavy lifting Stand Alone Forms: Patient Portal Discharge page Activity Restrictions/Additional Instructions: If the incision area is tender, you may apply an ice pack for short intervals (No more than 20 minutes on, followed by at least 20 minutes off). Do not apply heat. Do not use creams, lotions, or topical antibiotics unless instructed to do so by your surgeon. These can cause infection or allergic reaction. OK to shower Okay to change dressings with Band-Aids No lifting more than 20 lb No strenuous activities Call the office for follow-up in 2 weeks - with Dr. Breaux Call Your Doctor If: -Your temperature exceeds 101.5? F -You experience excessive pain or swelling -You have an unexpected reaction to medication -You have excessive bleeding -You experience continued vomiting/nausea -Your incision begins to separate -Your incision shows signs of infection such as increased redness, swelling, excessive pain, drainage (light blood or clear fluid is normal) or heat Care Plan Goals: control pain with oral pain pills Health Concerns: pain postop Plan of Treatment: okay to DC home on oral pain pills in follow-up in the office Assessment: doing very well Discharge Date/Time: 04/22/21 15:22
== END 2021-04-22 15:22 | disposition home or self-care (01) | DRG 263 ==
LOC: HO.ED 12:21 → HO.EDOVER 13:05 → HO.S3 16:02
PROVIDERS: Internal Medicine; Nurse Practitioner Family; Admitting Provider Surgery; Emergency Provider Emergency Medicine Emergency Medical Services; Visit Provider Surgery
PROC: 0F798ZZ Dilation of Common Bile Duct, Via Natural or Artificial Opening Endoscopic (ICD-10-PCS; CPT 43260; principal; 2021-04-20 13:00)
PROC: 0FT44ZZ Resection of Gallbladder, Percutaneous Endoscopic Approach (ICD-10-PCS; CPT 47562; principal; 2021-04-21 07:30)
DX: K80.43 Calculus of bile duct with acute cholecystitis with obstruction (principal); K21.9 Gastro-esophageal reflux disease without esophagitis; Z20.822 Contact with and (suspected) exposure to COVID-19; Z87.891 Personal history of nicotine dependence
CPT/HCPCS: 36415; 74176; 74181; 76705; 80048; 80076; 81001; 81025; 83605; 83690; 85025; 85027; 85610; 86850; 86900; 86901; 87040; 87086; 87491; 87591; 87635; 88304; 93005; 96361; 96365; 96375; 99285; J0330; J0696; J1100; J1170; J1610; J1885; J2250; J2270; J2370; J2405; J2543; J3010; J3430; P9017; Q9967

== ENCOUNTER 2021-08-10 07:25 | Emergency (ER) | payer MEDICAID, OTHER, SELFPAY ==
--- NOTE | ~2021-08-10 | CT_ITS ---
EXAMINATION: CT ABDOMEN AND PELVIS WITHOUT CONTRAST CLINICAL INFORMATION: Right lower quadrant pain COMPARISON: Previous CT of the abdomen and pelvis and limited abdominal ultrasound March 2021 and MR CP April 2021 TECHNIQUE: Multidetector volumetric imaging was performed from the superior aspect of the liver through the pubic symphysis. Sagittal and coronal reformatted images were obtained on the technologist's workstation. Exam is limited due to motion artifact. This CT examination was performed using dose optimization techniques as appropriate, variously including the following: *Automated exposure control *Adjustment of mA and/or kV according to patient size (this includes techniques or standardized protocols for targeted exams where dose is matched to indication/reason for exam; i.e. extremities or head) *Use of iterative reconstruction technique DLP: 651 mGy-cm FINDINGS: LUNG BASES: The visualized lung bases are unremarkable. LIVER, GALLBLADDER, AND BILIARY TREE: The liver is normal in size, shape, and attenuation. No focal hepatic lesion or biliary ductal dilatation is present. The gallbladder has been removed. PANCREAS: Unremarkable. SPLEEN: Unremarkable. ADRENAL GLANDS: Unremarkable. KIDNEYS AND URETERS: The kidneys are normal in size, shape, and attenuation. No hydronephrosis, hydroureter, or calculi seen. No perinephric stranding. BLADDER: Unremarkable. GASTROINTESTINAL TRACT: The small and large bowel are unremarkable. The appendix is unremarkable. ABDOMINAL WALL: No significant hernia is appreciated. LYMPH NODES: There is an upper normal-sized right are small bowel mesentery versus a retroperitoneal lymph node. This measures 9 mm in short axis axial image 46 series 3. This is similar to March 2021 exam. No other adenopathy is seen. VASCULAR: Unremarkable. PELVIC VISCERA: Unremarkable. OSSEOUS STRUCTURES: Unremarkable. CT/CT abdomen pelvis wo con IMPRESSION: No acute findings. Highly Limited exam due to motion artifact. Post cholecystectomy. Stable upper normal-size right small bowel mesentery or retroperitoneal lymph node from March 2021. Fleischner guidelines were followed.
[2021-08-10 07:43] VITALS: BP 148/89; PULSE 58; RESP 18; TEMP 35.9; O2SAT 98; BMI 29.5
--- NOTE | 2021-08-10 08:51 | ED.GENADULT ---
HPI - General Adult General Chief complaint: Extremity Injury, Lower Stated complaint: right side pain Time Seen by Provider: 08/10/21 08:24 Source: patient Mode of arrival: ambulatory Limitations: no limitations History of Present Illness HPI narrative: 45-year-old female who presents emergency department for evaluation of right lower back pain radiating down her right leg and right lower quadrant abdominal pain. The patient states that she has been having this pain for approximately 15 days. The pain came on gradually. She does not recount any injury. She describes the pain is a constant pressure-like pain which waxes and wanes in intensity. She states the pain is currently 10/10. The pain does radiate to her buttocks, down the back of her thigh to her knee. She states the pain is worse with movement. She is also complaining of pain in her abdomen. She points to her right lower quadrant when asked to localize the pain. This pain is a constant, dull ache which is worse with movement. The patient states that she has been taking ibuprofen and diclofenac without relief for pain. She denied fever but states she has been experiencing chills. She denied rhinorrhea, sore throat, cough, chest pain, shortness of breath, dyspnea on exertion, nausea, vomiting, diarrhea. She has had no incontinence of stool or bowel. She denied myalgias or arthralgias. MD complaint: Back pain Onset (ago): day(s) (15) Location: back (Lumbar sacral region) and right Radiation: extremity (Right buttocks, posterior thigh to the knee) Severity: severe Severity scale (1-10): 10 Quality: other (Pressure) Pain Consistency: constant (Waxes and wanes with intensity) Relieving factors: none Exacerbating factors: movement Associated symptoms: fever/chills (No fever, chills only) Treatments prior to arrival: NSAID Related Data Previous Rx's Medication Instructions Recorded ibuprofen 600 mg tablet 600 mg PO Q6H PRN #30 tab 04/22/21 oxycodone-acetaminophen 5 mg-325 1 tab PO Q4-6H PRN #30 tab 04/22/21 mg tablet (Percocet) cyclobenzaprine 10 mg tablet 10 mg PO TID PRN #15 tab 08/10/21 morphine 15 mg immediate release 15 mg PO Q4-6H PRN #10 tab 08/10/21 tablet prednisone 20 mg tablet 60 mg PO DAILY 7 Days #21 tab 08/10/21 Allergies Allergy/AdvReac Type Severity Reaction Status Date / Time No Known Allergies Allergy Verified 04/18/21 08:54 Review of Systems Review of Systems: Yes all other systems are reviewed and are negative [facility] Past Medical History [facility] Narrative: Past medical history: None. Social history: She denies tobacco, alcohol and drug use specifically she denies injection drug use. Medical History Choledocholithiasis GERD (gastroesophageal reflux disease) Social History Social History Household Members: Family Housing: House Do you presently have visiting nurse or other home services: No Patient Tobacco Use Status: Former Tobacco user Second Hand Smoke Exposure: No Use of substances other than those prescribed or required for medical reasons: No Advance Directives: No Advance Directives Information Provided: No service: No Current occupational status: unemployed Physical Exam ED Vital Signs: Vital Signs - 24 hr 08/10/21 07:43 08/10/21 09:28 08/10/21 10:43 Temperature 96.6 F L Pulse Rate 58 53 49 L Respiratory Rate 18 12 16 Blood Pressure 148/89 H 147/80 H 127/80 Pulse Oximetry 98 100 99 BMI result Body Mass Index 29.5 Const General: cooperative and no acute distress Orientation/consciousness: oriented to person and oriented to place Limitations: no limitations HENMT Head: Yes normal to inspection, Yes normocephalic and Yes atraumatic Ears: external ears normal General nose exam: Normal external nose present Face and sinus: Yes normal facial exam Mouth: Normal oral and palatal mucosa present Throat: Yes posterior oropharynx normal Eyes General: appearance normal, both eyes and all related structures Pupils: Equal, round and reactive pupils present Neck Neck: Yes normal visual inspection, Yes no lymphadenopathy, Yes trachea midline and Yes supple Chest Chest palpation & inspection: normal inspection of the chest and normal palpation of entire chest wall Resp Effort & Inspection: normal respiratory effort and able to speak in complete sentences Auscultation: clear to auscultation bilaterally Cardio Rate: regular rate Rhythm: regular rhythm Heart sounds: S1 normal heart sound present, S2 normal heart sound present and no murmurs GI Inspection: Yes normal to inspection Palpation (GI): Soft to palpation, Tenderness to palpation present (GI) in the RLQ (Mod) and no guarding Auscultation: normal bowel sounds General: Yes no CVA tenderness Back/Spine/Pelvis Other: Tenderness spasm of the right paraspinal muscles in the lumbar sacral area, no point vertebral tenderness. Negative straight leg raises bilaterally Back: no CVA tenderness Skin General skin exam: no rashes or lesions noted Neuro General: oriented to person and oriented to place Cranial nerves: Yes CN's II-XII intact bilaterally and Yes Equal, round and reactive pupils present Cognition (Neuro): normal cognition Motor exam (neuro): 5/5 motor strength present throughout Extrem General: Yes normal to inspection Psych Appearance: grossly normal Speech and movement: Normal speech and movement present Affect: normal affect Attitude: cooperative Thought process: Normal thought process present Thought content: Normal thought content present Course Course Course Narrative: 45-year-old female who presents emergency department for evaluation of right lower back pain with pain radiating to her buttocks, posterior thigh and knee and right lower quadrant abdominal pain times 15 days. The patient has had no significant concerning systemic symptoms. Vital signs revealed an elevated blood pressure of 148/89 and a low temperature of 96.6 degrees otherwise were unremarkable. Her examination did reveal tenderness palpation of the paraspinal muscles in the lumbar sacral area on the right as well as right lower quadrant tenderness. Differential includes was not limited to paraspinal muscle spasm/inflammation, disc disease, sciatica, infectious process, appendicitis, bowel abscess. I did order a CBC, CMP, ESR, CRP, lipase, urinalysis, beta hCG. CT scan of the abdomen pelvis without IV contrast will be obtained. Patient's pain was treated with Toradol 30 mg IV. She was also ordered to get normal saline x1 L. 1209: Laboratory evaluation: CBC, CMP were unremarkable. test was negative. Radiology evaluation: CT scan of the abdomen pelvis without IV contrast revealed no acute findings. The patient states that her pain improved to 7/10 after the above treatment. She was ordered to get morphine 4 mg IV. Patient's pain is most likely secondary to also lumbar strain with radiculopathy. patient's for be discharged home with prescriptions for Flexeril, prednisone 60 mg once a day for 7 days and morphine. She was given printed and verbal instructions. Medical Decision Making Lab Data Result diagrams: 08/10/21 08:58 05/25/22 08:58 Labs: Lab Results 08/10/21 08/10/21 08/10/21 Range/Units 08:58 08:58 08:58 WBC 7.1 (4.8-10.8) X10*3/uL RBC 5.13 D (4.20-5.50) X10*6/uL Hgb 14.5 D (12.0-16.0) g/dl Hct 43.8 D (37.0-47.0) % MCV 85.4 (80.0-98.0) fL MCH 28.3 (27.0-33.0) pg MCHC 33.1 (31.0-35.0) g/dl RDW 12.3 (11.0-16.0) % Plt Count 343 (160-400) X10*3/uL MPV 8.9 L (9.4-12.3) fL Immature Gran % (Auto) 0.1 (0.0-0.4) % Neut % (Auto) 50.2 (45-73) % Lymph % (Auto) 41.0 H (20-40) % Antelope % (Auto) 6.6 (2-11) % Eos % (Auto) 1.7 (0-4) % Baso % (Auto) 0.4 (0-2) % Lymph # (Auto) 2.9 (1.2-4.9) X10*3/uL Antelope # (Auto) 0.5 (0.1-1.2) X10*3/uL Eos # (Auto) 0.1 (0.0-0.4) X10*3/uL Baso # (Auto) 0.0 (0.0-0.2) X10*3/uL Abs Immat Gran (auto) 0.01 (0.00-0.03) X10*3/uL Absolute Neuts (auto) 3.6 (2.0-8.3) x10*3/uL Absolute Nucleated RBC 0.000 (0.0-0.012) X10*3/uL Nucleated RBC % (auto) 0.0 (0.0-0.2) /100WBC ESR 7 (0-20) MM/HR Sodium 140 (135-145) mmol/L Potassium 4.5 (3.3-5.1) mmol/L Chloride 108 (96-108) mmol/L Carbon Dioxide 24 (22-29) mmol/L Anion Gap 13 (12-20) BUN 13 (9-16) mg/dL Creatinine 0.74 (0.5-1.4) mg/dL Estim Creat Clear Calc 74.4 Estimated GFR > 60 Random Glucose 108 (60-115) mg/dL Calcium 10.2 D (8.4-10.2) mg/dL Total Bilirubin 0.3 (0.0-1.0) mg/dL AST 22 (5-31) U/L ALT 33 H (0-31) U/L Alkaline Phosphatase 59 D (39-117) U/L C-Reactive Protein 0.27 (< or = 0.50) mg/dL Total Protein 7.6 (6.5-8.0) g/dL Albumin 4.5 D (3.5-5.0) g/dL Lipase 14 (8-78) U/L Beta HCG, Quant mIU/mL Urine Test (NEGATIVE) 08/10/21 08/10/21 Range/Units 08:58 09:33 WBC (4.8-10.8) X10*3/uL RBC (4.20-5.50) X10*6/uL Hgb (12.0-16.0) g/dl Hct (37.0-47.0) % MCV (80.0-98.0) fL MCH (27.0-33.0) pg MCHC (31.0-35.0) g/dl RDW (11.0-16.0) % Plt Count (160-400) X10*3/uL MPV (9.4-12.3) fL Immature Gran % (Auto) (0.0-0.4) % Neut % (Auto) (45-73) % Lymph % (Auto) (20-40) % Antelope % (Auto) (2-11) % Eos % (Auto) (0-4) % Baso % (Auto) (0-2) % Lymph # (Auto) (1.2-4.9) X10*3/uL Antelope # (Auto) (0.1-1.2) X10*3/uL Eos # (Auto) (0.0-0.4) X10*3/uL Baso # (Auto) (0.0-0.2) X10*3/uL Abs Immat Gran (auto) (0.00-0.03) X10*3/uL Absolute Neuts (auto) (2.0-8.3) x10*3/uL Absolute Nucleated RBC (0.0-0.012) X10*3/uL Nucleated RBC % (auto) (0.0-0.2) /100WBC ESR (0-20) MM/HR Sodium (135-145) mmol/L Potassium (3.3-5.1) mmol/L Chloride (96-108) mmol/L Carbon Dioxide (22-29) mmol/L Anion Gap (12-20) BUN (9-16) mg/dL Creatinine (0.5-1.4) mg/dL Estim Creat Clear Calc Estimated GFR Random Glucose (60-115) mg/dL Calcium (8.4-10.2) mg/dL Total Bilirubin (0.0-1.0) mg/dL AST (5-31) U/L ALT (0-31) U/L Alkaline Phosphatase (39-117) U/L C-Reactive Protein (< or = 0.50) mg/dL Total Protein (6.5-8.0) g/dL Albumin (3.5-5.0) g/dL Lipase (8-78) U/L Beta HCG, Quant < 2 mIU/mL Urine Test NEGATIVE (NEGATIVE) Discharge Plan Discharge Clinical Impression: Right lumbar radiculopathy Acute lumbar back pain Qualifiers: Back pain laterality: right Sciatica presence: with sciatica Abdominal pain Qualifiers: Abdominal location: right lower quadrant Qualified Code(s): R10.31 - Right lower quadrant pain Patient Disposition: Home, Self-Care Instructions: Acute Low Back Pain (ED), Lumbar Radiculopathy (ED) Additional Instructions: Your blood work was normal. Your CT scan of your abdomen pelvis with IV contrast did not reveal any abnormality in your abdomen to explain pain. This pain is most likely related to your back pain. Take prednisone 20 mg pills, 3 pills once a day for 7 days. Stop taking your anti-inflammatory medications (ibuprofen and diclofenac) while your taking prednisone. Take Tylenol (acetaminophen) 2 pills every 4-6 hours as needed for pain. For pain not relieved by prednisone or Tylenol take morphine 15 mg pills, 1 pill every 4 hours as needed for pain. This medication will make you sleepy, do not drive or work while taking this medication. Morphine is a narcotic medication and can be addicting. If you are concerned about addiction you can ask the pharmacist for less pills or do not get this prescription filled. Take Flexeril (cyclobenzaprine) 10 mg pills, 1 pill every 6-8 hours as needed for pain or spasm. This medication will make you sleepy. Do not drive or work while taking this medication. Follow-up with your doctor in 2 days. Please return to the emergency department if your symptoms get worse or if you develop any symptoms that are concerning to you. Call our referral line to make a follow-up appointment with a primary care doctor. Prescriptions: New cyclobenzaprine 10 mg tablet 10 mg PO TID PRN (Reason: pain, muscle spasm) Qty: 15 0RF prednisone 20 mg tablet 60 mg PO DAILY 7 Days Qty: 21 0RF morphine 15 mg tablet 15 mg PO Q4-6H PRN (Reason: pain) Qty: 10 0RF Rx Instructions: The patient may ask for partial fill No Action oxycodone-acetaminophen [Percocet] 5-325 mg tablet 1 tab PO Q4-6H PRN (Reason: pain, severe) Qty: 30 0RF ibuprofen 600 mg tablet 600 mg PO Q6H PRN (Reason: pain) Qty: 30 0RF
[2021-08-10] MEDS: Ketorolac Tromethamine 15 MG/ML VIAL 30 MG IVPUSH (09:03)
[2021-08-10] MEDS: 0.9 % Sodium Chloride 1,000 ML 999 ML IV (09:03)
[2021-08-10 09:04] LABS: MANUAL DIFF FLAG NO
[2021-08-10 09:08] LABS: Basophils Percent Auto 0.4 % (0-2); Eosinophils Absolute Auto 0.1 X10*3/uL (0.0-0.4); Eosinophils Percent Auto 1.7 % (0-4); Hematocrit 43.8 % (37.0-47.0); Hemoglobin 14.5 g/dl (12.0-16.0); Imm Gran Abs Auto 0.01 X10*3/uL (0.00-0.03); Imm Gran Pct Auto 0.1 % (0.0-0.4); Lymphocytes Absolute Auto 2.9 X10*3/uL (1.2-4.9); Mean Corpuscular HGB Conc 33.1 g/dl (31.0-35.0); Mean Corpuscular Hemoglobin 28.3 pg (27.0-33.0); Mean Corpuscular Volume 85.4 fL (80.0-98.0); Mean Platelet Volume 8.9 fL (9.4-12.3); Monocytes Absolute Auto 0.5 X10*3/uL (0.1-1.2); Monocytes Percent Auto 6.6 % (2-11); Neutrophils Absolute Auto 3.6 x10*3/uL (2.0-8.3); Neutrophils Percent Auto 50.2 % (45-73); Platelet Count 343 X10*3/uL (160-400); Red Blood Count 5.13 X10*6/uL (4.20-5.50); Red Cell Distribution Width 12.3 % (11.0-16.0); White Blood Count 7.1 X10*3/uL (4.8-10.8)
[2021-08-10 09:28] VITALS: BP 147/80; PULSE 53; RESP 12; O2SAT 100
[2021-08-10 09:28] LABS: Alanine Aminotransferase 33 U/L (0-31); Albumin Level 4.5 g/dL (3.5-5.0); Alkaline Phosphatase 59 U/L (39-117); Anion Gap 13 (12-20); Aspartate Amino Transferase 22 U/L (5-31); Bilirubin Total 0.3 mg/dL (0.0-1.0); Blood Urea Nitrogen 13 mg/dL (9-16); C Reactive Protein 0.27 mg/dL (< or = 0.50); Calcium 10.2 mg/dL (8.4-10.2); Carbon Dioxide 24 mmol/L (22-29); Chloride 108 mmol/L (96-108); Creatinine Clr Calc Pharmacy 74.4; Estimated Glomerular Filt Rate > 60; Glucose Random 108 mg/dL (60-115); Lipase 14 U/L (8-78); Potassium 4.5 mmol/L (3.3-5.1); Sodium 140 mmol/L (135-145); Total Protein 7.6 g/dL (6.5-8.0)
[2021-08-10 09:37] LABS: HCG Quantitative < 2 mIU/mL
[2021-08-10 09:41] LABS: UPreg QC Valid YES; Urine Pregnancy NEGATIVE (NEGATIVE)
[2021-08-10 09:42] LABS: Erythrocyte Sedimentation Rate 7 MM/HR (0-20)
[2021-08-10 10:43] VITALS: BP 127/80; PULSE 49; RESP 16; O2SAT 99
[2021-08-10] MEDS: Morphine Sulfate 4 MG/ML CARTRIDGE IVPUSH (12:19)
[2021-08-10 13:00] VITALS: BP 132/74; PULSE 66; RESP 18; O2SAT 99
== END 2021-08-10 13:03 | disposition home or self-care (01) ==
PROVIDERS: Emergency Provider Emergency Medicine Emergency Medical Services
DX: M54.41 Lumbago with sciatica, right side (principal); R68.83 Chills (without fever); R10.31 Right lower quadrant pain; Z87.891 Personal history of nicotine dependence; Z79.899 Other long term (current) drug therapy
CPT/HCPCS: 36415; 74176; 80053; 81025; 83690; 84702; 85025; 85652; 86140; 96361; 96374; 96375; 99284; J1885; J2270